=== PATIENT | male | born 1995 | race Hispanic/Latino ===

== ENCOUNTER 2017-04-28 22:33 | Emergency (ER) | payer SELFPAY ==
[2017-04-28 23:44] LABS: Absolute Lymphocytes (CBC) 1.4 K/uL (0.7-4.9); Absolute Monocytes 1.1 K/uL (0.1-1.3); Absolute Neutrophil 11.4 K/uL (1.8-8.0); Basophils % 0.3 % (0-1.3); Eosinophils % 0.8 % (0-4.4); Hematocrit 41.6 % (39.6-49.0); Lymphocytes % 10.2 % (15.3-44.8); MCH 31.4 pg (27.0-35.0); MCV 91.2 fL (80-100); RBC Red Blood Cell Count 4.56 M/uL (4.33-5.43)
[2017-04-29 00:04] LABS: BUN Blood Urea Nitrogen 14 mg/dL (6-20); Bicarbonate 28 mEq/L (21-31); Glomerular Filtration Rate > 90 mL/min (=/>90); Glucose Level 110 mg/dL (65-120); Potassium 3.5 mEq/L (3.6-5.0); Sodium Level 141 mEq/L (135-145)
[2017-04-29 00:41] LABS: Thyroid Stimulating Hormone 0.87 uIU/mL (0.34-5.60)
--- NOTE | 2017-04-29 01:19 | ER ---
Nurse's Notes [facility] Name: Teodoro Monte Age: 22 yrs Sex: Male : 1995 Arrival Date: 04/28/2017 Time: 22:34 Bed 26 Private MD: Diagnosis: Chest pain, unspecified Presentation: 04/28 22:50 Presenting complaint: Patient states: Chest pain that began 30 min ago while patient lp1 was watching TV; States pain to center of chest; noted to be hyperventilating, feeling numbness to arms, shaking, crying; States similar episodes in the past but this was more severe. Transition of care: patient was not received from another setting of care. Onset of symptoms was April 28, 2017 at 22:00. Care prior to arrival: None. 22:50 Method Of Arrival: Wheelchair lp1 22:50 Acuity: JASBIR 3 lp1 Triage Assessment: 22:45 General: Appears distressed, Behavior is anxious, crying. Pain: Complains of pain in lp1 chest Quality of pain is described as sharp, Pain began 30 min ago. Is continuous. Cardiovascular: Patient's skin is warm and dry. Rhythm is sinus tachycardia. Respiratory: Airway is patent Trachea midline Respiratory effort is labored, Respiratory pattern is hyperventilation. Derm: Skin is pink, warm \T\ dry. Historical: - Allergies: 22:52 No Known Allergies; lp1 - Home Meds: 22:52 None [Active]; lp1 - PMHx: 22:52 Heart Murmur; lp1 - PSHx: 22:52 None; lp1 - Immunization history:: Adult Immunizations up to date. - Social history:: Smoking status: Patient uses tobacco products, denies chronic smoking, but will smoke occasionally, Patient uses Marijuana . Screenin:51 Abuse screen: Denies threats or abuse. Denies injuries from another. Nutritional lp1 screening: No deficits noted. Tuberculosis screening: No symptoms or risk factors identified. Fall Risk None identified. Assessment: 22:53 Reassessment: Patient states symptoms have improved. General: Appears comfortable, lp1 Behavior is calm. 23:15 General: Appears in no apparent distress. comfortable, well groomed, well developed, kr2 well nourished, Behavior is cooperative, appropriate for age, anxious. Pain: Complains of pain in chest Pain does not radiate. Pain currently is 8 out of 10 on a pain scale. Quality of pain is described as pressure, sharp, Is continuous. Pain: Pain began 1 hour ago. Alleviated by. Neuro: Cardiovascular: Heart tones S1 S2 Capillary refill < 3 seconds in bilateral fingers Patient's skin is warm and dry. Rhythm is sinus tachycardia. Respiratory: Airway is patent Respiratory effort is even, unlabored, Respiratory pattern is regular, symmetrical, Breath sounds are clear bilaterally. GI: Abdomen is flat, non-distended, Bowel sounds present X 4 quads. : No signs and/or symptoms were reported regarding the genitourinary system. EENT: Nares are clear Oral mucosa is moist. Derm: Skin is intact, is healthy with good turgor, Skin is pink, warm \T\ dry. Musculoskeletal: Circulation, motion, and sensation intact. 04/29 01:00 Reassessment: Patient appears in no apparent distress at this time. Patient and/or kr2 family updated on plan of care and expected duration. Pain level reassessed. Patient is alert, oriented x 3, equal unlabored respirations, skin warm/dry/pink. Patient denies pain at this time. Vital Signs: 04/28 22:49 BP 168 / 76; Pulse 118; Resp 14; Temp 98.8(O); Pulse Ox 96% on R/A; Weight 77.11 kg; lp1 Height 5 ft. 9 in. (175.26 cm); Pain 8/10; 23:38 BP 121 / 64; Pulse 89; Resp 18; Pulse Ox 97% on R/A; kr2 04/29 01:00 BP 108 / 63; Pulse 69; Resp 17; Pulse Ox 96% on R/A; kr2 04/28 22:49 Body Mass Index 25.10 (77.11 kg, 175.26 cm) lp1 ED Course: 04/28 22:34 Patient arrived in ED. do 22:48 Nghia Sommers MD is Attending Physician. gs 22:49 Arm band placed on left wrist. lp1 22:51 Triage completed. lp1 22:51 Patient has correct armband on for positive identification. Placed in gown. Bed in low lp1 position. Call light in reach. monitor and storage bin tender on. Pulse ox on. NIBP on. 22:51 EKG done, by ED staff, reviewed by Nghia Sommers MD. Patient maintains SpO2 saturation lp1 greater than 95% on room air. 23:15 Inserted saline lock: 22 gauge in right forearm, using aseptic technique. Blood kr2 collected. 23:25 Karlie Lino, RN is Primary Nurse. kr2 23:38 X-ray completed. Portable x-ray completed in exam room. Patient tolerated procedure kw well. 03 01:19 No provider procedures requiring assistance completed. IV discontinued, intact, kr2 bleeding controlled, No redness/swelling at site. Pressure dressing applied. Administered Medications: No medications were administered Outcome: 01:18 Discharge ordered by . gs 01:23 Discharged to home ambulatory, with family. kr2 01:23 Condition: good 01:23 Discharge instructions given to patient, family, Instructed on discharge instructions, follow up and referral plans. medication usage, Demonstrated understanding of instructions, follow-up care, medications, Prescriptions given X 1. 01:23 Patient left the ED. kr2 Signatures: Carole Arias Laura, RN RN lp1 Pricilla Almonte Gregory, MD MD Karlie Lino, RN RN kr2 Corrections: (The following items were deleted from the chart) 04/28 22:52 22:50 Presenting complaint: Patient states: Chest pain that began 30 min ago while lp1 patient was watching TV; States pain to center of chest; noted to be hyperventilating, feeling numbness to arms, shaking, crying lp1 22:54 22:45 Pain: Complains of pain in chest lp1 lp1
--- NOTE | 2017-04-29 01:19 | EDPHYS ---
Physician Documentation [facility] Name: Teodoro Monte Age: 22 yrs Sex: Male : 1995 Arrival Date: 04/28/2017 Time: 22:34 Bed 26 Private MD: ED Physician Nghia Sommers HPI: 04/29 01:09 This 22 yrs old Male presents to ER via Wheelchair with complaints of Chest gs Pain. 01:09 The patient or guardian reports chest pain that is located primarily in the anterior gs chest wall. The pain does not radiate. Associated signs and symptoms: Pertinent negatives: diaphoresis, shortness of breath, vomiting. The chest pain is described as dull. Duration: The patient or guardian reports multiple episodes, that wax and wane, with no pattern. Modifying factors: The symptoms are alleviated by nothing. the symptoms are aggravated by nothing. Severity of pain: At its worst the pain was moderate in the emergency department the pain is unchanged. The patient has experienced similar episodes in the past, several times. Historical: - Allergies: 04/28 22:52 No Known Allergies; lp1 - Home Meds: 22:52 None [Active]; lp1 - PMHx: 22:52 Heart Murmur; lp1 - PSHx: 22:52 None; lp1 - Immunization history:: Adult Immunizations up to date. - Social history:: Smoking status: Patient uses tobacco products, denies chronic smoking, but will smoke occasionally, Patient uses Marijuana . ROS: 04/29 01:09 All other systems are negative. gs Exam: 01:09 Head/Face: Normocephalic, atraumatic. Eyes: Pupils equal round and reactive to light, gs extra-ocular motions intact. Lids and lashes normal. Conjunctiva and sclera are non-icteric and not injected. Cornea within normal limits. Periorbital areas with no swelling, redness, or edema. ENT: Nares patent. No nasal discharge, no septal abnormalities noted. Tympanic membranes are normal and external auditory canals are clear. Oropharynx with no redness, swelling, or masses, exudates, or evidence of obstruction, uvula midline. Mucous membranes moist. Neck: Trachea midline, no thyromegaly or masses palpated, and no cervical lymphadenopathy. Supple, full range of motion without nuchal rigidity, or vertebral point tenderness. No Meningismus. Chest/axilla: Normal chest wall appearance and motion. Nontender with no deformity. No lesions are appreciated. Respiratory: Lungs have equal breath sounds bilaterally, clear to auscultation and percussion. No rales, rhonchi or wheezes noted. No increased work of breathing, no retractions or nasal flaring. Abdomen/GI: Soft, non-tender, with normal bowel sounds. No distension or tympany. No guarding or rebound. No evidence of tenderness throughout. Back: No spinal tenderness. No costovertebral tenderness. Full range of motion. Skin: Warm, dry with normal turgor. Normal color with no rashes, no lesions, and no evidence of cellulitis. MS/ Extremity: Pulses equal, no cyanosis. Neurovascular intact. Full, normal range of motion. Neuro: Awake and alert, GCS 15, oriented to person, place, time, and situation. Cranial nerves II-XII grossly intact. Motor strength 5/5 in all extremities. Sensory grossly intact. Cerebellar exam normal. Normal gait. 01:09 Constitutional: The patient appears alert, awake. 01:09 Cardiovascular: Rate: tachycardic, Rhythm: regular, Pulses: no pulse deficits are appreciated, Heart sounds: normal. 01:09 ECG was reviewed by the Attending Physician. Vital Signs: 04/28 22:49 BP 168 / 76; Pulse 118; Resp 14; Temp 98.8(O); Pulse Ox 96% on R/A; Weight 77.11 kg; lp1 Height 5 ft. 9 in. (175.26 cm); Pain 8/10; 23:38 BP 121 / 64; Pulse 89; Resp 18; Pulse Ox 97% on R/A; kr2 04/29 01:00 BP 108 / 63; Pulse 69; Resp 17; Pulse Ox 96% on R/A; kr2 04/28 22:49 Body Mass Index 25.10 (77.11 kg, 175.26 cm) lp1 MDM: 04/28 23:20 Patient medically screened. 04/29 01:09 Differential diagnosis: chest wall pain, pneumonia, pneumothorax. Data reviewed: vital gs signs, nurses notes. Response to treatment: the patient's symptoms have markedly improved after treatment, the patient's symptoms have resolved after treatment, the patient is not tachycardic. 04/28 23:21 Order name: Basic Metabolic Panel 04/28 23:21 Order name: CBC with Diff 04/28 23:21 Order name: Troponin (emerg Dept Use Only) 04/28 23:21 Order name: TSH 04/28 23:49 Order name: CBC with Automated Diff; Complete Time: 01:08 EDMS 04/29 00:04 Order name: Basic Metabolic Panel; Complete Time: 01:08 EDMS 04/28 23:21 Order name: XRAY Chest (1 view) 04/28 23:21 Order name: EKG; Complete Time: 23:21 04/28 23:21 Order name: Cardiac monitoring; Complete Time: 23:37 04/28 23:21 Order name: EKG - Nurse/Tech; Complete Time: 23:37 04/28 23:21 Order name: IV Saline Lock; Complete Time: 23:37 04/29 00:04 Order name: Troponin (Emerg Dept Use Only); Complete Time: 01:08 EDMS 04/29 00:22 Order name: Urine Dipstick--Ancillary (enter results) ia 04/29 00:41 Order name: Thyroid Stimulating Hormone; Complete Time: 01:08 EDMS 04/28 23:21 Order name: Labs collected and sent; Complete Time: 23:37 04/28 23:21 Order name: O2 Per Protocol; Complete Time: 23:37 04/28 23:21 Order name: O2 Sat Monitoring; Complete Time: 23:37 04/28 23:21 Order name: Urine Dipstick-Ancillary (obtain specimen); Complete Time: 00:20 gs EC:09 Rate is 116 beats/min. Rhythm is regular. MT interval is normal. QRS interval is gs prolonged. T waves are Normal. No ST changes noted. Clinical impression: Normal ECG. Interpreted by me. Administered Medications: No medications were administered Disposition: 04/29/17 01:18 Discharged to Home. Impression: Chest pain, unspecified. - Condition is Stable. - Discharge Instructions: Nonspecific Chest Pain. - Prescriptions for Naprosyn 500 mg Oral Tablet - take 1 tablet by ORAL route 2 times per day As needed take with food; 30 tablet. - Medication Reconciliation Form, Thank You Letter, Antibiotic Education, Prescription Opioid Use form. - Follow up: Private Physician; When: 2 - 3 days; Reason: Re-evaluation by your physician. Signatures: Dispatcher [employer] Sheila Arreaga RN RN lp1 Nghia Sommers MD MD gs Karlie Lino RN RN kr2
[2017-04-29 01:30] VITALS: TEMP 98.8
[2017-04-29 01:33] VITALS: BP 108/63; O2SAT 96
[2017-04-29 03:07] LABS: Urine Blood NEGATIVE (NEG); Urine Glucose NEGATIVE (NEG); Urine Protein NEGATIVE (NEG)
--- NOTE | 2017-04-29 06:48 | RAD REPORT ---
EXAM DESCRIPTION: RAD - Chest Single View - 04/28/2017 11:41 pm CLINICAL HISTORY: Chest pain COMPARISON: None. TECHNIQUE: AP portable chest image was obtained 2331 hours . FINDINGS: Lungs are clear. Heart and vasculature are normal. No measurable pleural effusion and no p neumothorax. No gross bony abnormality seen. No acute aortic findings suspected. IMPRESSION: No acute cardiopulmonary process.
--- NOTE | 2017-04-29 07:34 | EKG ---
Test Date: 2017-04-28 Test Time: 22:42:01 Manager Simulation: MADHAVI MEASUREMENT RESULTS: Intervals: Rate: 116 NE: 160 QRSD: 102 QT: 326 QTc: 453 [place]: P: 71 NE: 160 QRS: 18 T: 37 INTERPRETIVE STATEMENTS: Sinus tachycardia Otherwise normal ECG Compared to ECG 11/22/2015 11:42:39 Sinus rhythm no longer present Electronically Signed On 04-29-17 07:33:31 CDT by Ernesto Lemus
== END 2017-04-29 01:23 | disposition home or self-care (01) ==
LOC: ER 22:33
DX: R07.9 Chest pain, unspecified (principal); R01.1 Cardiac murmur, unspecified; Z72.0 Tobacco use
CPT/HCPCS: 36415; 71045; 80048; 81003; 84443; 84484; 85025; 93005; 99285

== ENCOUNTER 2017-07-03 10:20 | Emergency (ER) | payer SELFPAY ==
[2017-07-03] MEDS ORDERED: ASPIRIN 81 MG CHEWABLE TABLET ONE (13:21)
[2017-07-03 14:09] LABS: Absolute Lymphocytes (CBC) 2.4 K/uL (0.7-4.9); Absolute Monocytes 0.8 K/uL (0.1-1.3); Absolute Neutrophil 6.6 K/uL (1.8-8.0); Basophils % 0.3 % (0-1.3); Eosinophils % 0.7 % (0-4.4); Lymphocytes % 24.2 % (15.3-44.8); MCV 91.9 fL (80-100); MPV 8.3 fL (7.6-11.3); Monocytes % 8.1 % (3.3-12.3)
[2017-07-03 14:12] LABS: Bicarbonate 25 mEq/L (21-31); Glucose Level 97 mg/dL (65-120); Potassium 3.7 mEq/L (3.6-5.0); Sodium Level 139 mEq/L (135-145)
[2017-07-03 14:18] LABS: ALT/SGPT 18 IU/L (10-60); AST/SGOT 20 IU/L (10-42); Albumin 4.9 g/dL (3.2-5.5); Alkaline Phosphatase 81 IU/L (42-121); BUN Blood Urea Nitrogen 14 mg/dL (6-20); Bilirubin Direct 0.1 mg/dL (0-0.2); Bilirubin Total 0.7 mg/dL (0.3-1.2); Creatine Phosphokinase 82 IU/L (22-269); Magnesium 2.3 mg/dL (1.8-2.5); Protein, Total 7.8 g/dL (6.0-8.3)
--- NOTE | 2017-07-03 14:25 | RAD REPORT ---
EXAM DESCRIPTION: RAD - Chest Single View - 07/03/2017 1:26 pm CLINICAL HISTORY: Intermittent chest pain COMPARISON: April 28 TECHNIQUE: AP portable chest image was obtained 1323 hours . FINDINGS: Lungs are clear. Heart and vasculature are normal. No measurable pleural effusion and no p neumothorax. No gross bony abnormality seen. No acute aortic findings suspected. IMPRESSION: No acute cardiopulmonary process. No significant interval change.
[2017-07-03 14:31] LABS: Urine Blood TRACE (NEG); Urine Glucose NEGATIVE (NEG); Urine Protein NEGATIVE (NEG); Urine Specific Gravity 1.025 (1.005-1.030); Urine pH 6.5 (5.0-7.0)
[2017-07-03 17:51] LABS: CKMB Creatine Kinase MB 0.8 ng/ml (0.3-4.0)
--- NOTE | 2017-07-03 17:58 | ER ---
Nurse's Notes [facility] Name: Teodoro Monte Age: 22 yrs Sex: Male : 1995 Arrival Date: 07/03/2017 Time: 10: Bed 27 Private MD: None, None Diagnosis: Other chest pain Presentation: 07/03 10:32 Presenting complaint: Patient states: "I get these episodes of chest pain a few times a aj month, I have been told they are anxiety attacks but a monitor car operator that came to my house a week ago told me I have an irregular heart beat and a murmur.". Transition of care: patient was not received from another setting of care. Onset of symptoms was July 03, 2017. Care prior to arrival: None. 10:32 Method Of Arrival: Ambulatory aj 10:32 Acuity: JASBIR 3 aj 12:30 Risk Assessment: Do you want to hurt yourself or someone else? Patient reports no aa5 desire to harm self or others. Initial Sepsis Screen: Does the patient meet any 2 criteria? No. Patient's initial sepsis screen is negative. Does the patient have a suspected source of infection? No. Patient's initial sepsis screen is negative. Triage Assessment: 10:34 General: Appears in no apparent distress. uncomfortable, Behavior is calm, cooperative, aj appropriate for age. Pain: Complains of pain in chest. Neuro: Level of Consciousness is awake, alert, obeys commands, Oriented to person, place, time, situation, Appropriate for age. Cardiovascular: Reports chest pain. Respiratory: Airway is patent Respiratory effort is even, unlabored, Respiratory pattern is regular, symmetrical. GI: Reports nausea, vomiting. Derm: Skin is intact, is healthy with good turgor, Skin is pink, warm \\T\\ dry. normal. Historical: - Allergies: 10:34 No Known Allergies; aj - Home Meds: 10:34 None [Active]; aj - PMHx: 10:34 Heart Murmur; aj - PSHx: 10:34 None; aj - Immunization history:: Adult Immunizations up to date. - Social history:: Smoking status: Patient uses tobacco products, denies chronic smoking, but will smoke occasionally. - Ebola Screening: : No symptoms or risks identified at this time. Screenin:30 Abuse screen: Denies threats or abuse. Nutritional screening: No deficits noted. aa5 Tuberculosis screening: No symptoms or risk factors identified. Fall Risk None identified. Assessment: 12:30 General: Appears comfortable, Behavior is calm, cooperative. Pain: Complains of pain in aa5 mid-sternal area Pain radiates to anterior aspect of left upper chest and left jaw Pain currently is 0 out of 10 on a pain scale. Quality of pain is described as pressure, shooting, squeezing, Pain began Pt states "months ago" Is episodic. Neuro: Level of Consciousness is awake, alert, obeys commands, Oriented to person, place, time, situation. Cardiovascular: Heart tones S1 S2 present Rhythm is regular. Respiratory: Reports shortness of breath at rest since this morning Airway is patent Respiratory effort is even, unlabored, Respiratory pattern is regular, symmetrical, Breath sounds are clear bilaterally. GI: No signs and/or symptoms were reported involving the gastrointestinal system. : No signs and/or symptoms were reported regarding the genitourinary system. EENT: No signs and/or symptoms were reported regarding the EENT system. Derm: Skin is pink, warm \\T\\ dry. Musculoskeletal: Range of motion: intact in all extremities. 13:40 Reassessment: Report given to RIA Ziegler. aa5 13:49 Reassessment: Patient appears in no apparent distress at this time. Patient and/or kr2 family updated on plan of care and expected duration. Pain level reassessed. Patient is alert, oriented x 3, equal unlabored respirations, skin warm/dry/pink. Patient up to restroom at this time. 15:00 Reassessment: No changes from previously documented assessment. kr2 16:21 Reassessment: Patient appears in no apparent distress at this time. Patient and/or kr2 family updated on plan of care and expected duration. Pain level reassessed. Patient is alert, oriented x 3, equal unlabored respirations, skin warm/dry/pink. Patient denies pain at this time. Vital Signs: 10:34 BP 138 / 84; Pulse 87; Resp 16; Temp 98.7; Pulse Ox 99% on R/A; Weight 79.38 kg; Height aj 5 ft. 9 in. (175.26 cm); 13:20 BP 137 / 76; Pulse 60; Resp 16 S; Pulse Ox 100% on R/A; aa5 13:54 BP 130 / 91; Pulse 68; Resp 19; Pulse Ox 98% on R/A; kr2 15:00 BP 128 / 100; Pulse 73; Resp 17; Pulse Ox 99% on R/A; kr2 16:22 BP 129 / 75; Pulse 60; Resp 16; Pulse Ox 100% on R/A; kr2 17:41 BP 125 / 79; Pulse 54; Resp 13; Pulse Ox 99% on R/A; mh5 10:34 Body Mass Index 25.84 (79.38 kg, 175.26 cm) aj ED Course: 10:22 Patient arrived in ED. mr 10:22 None, None is Private Physician. mr 10:34 Triage completed. aj 10:34 Arm band placed on left wrist. Patient placed in waiting room, Patient notified of wait aj time. 10:35 EKG completed in triage. Results shown to MD. aj 10:53 EKG done, by home service technician. reviewed by Russ Talbert MD. 3 11:58 Donna Gomez, RIA is Primary Nurse. aa5 12:24 Raul Wilcox PA is PHCP. cp 12:24 Russ Talbert MD is Attending Physician. cp 12:30 Patient placed in an exam room, on a stretcher. aa5 12:30 Patient has correct armband on for positive identification. Bed in low position. Call aa5 light in reach. Side rails up X2. 12:30 specialties operator on. Pulse ox on. NIBP on. aa5 12:30 Patient maintains SpO2 saturation greater than 95% on room air. aa5 13:26 XRAY Chest (1 view) In Process Unspecified. EDMS 13:30 Inserted saline lock: 20 gauge in right forearm, using aseptic technique. aa5 13:47 No provider procedures requiring assistance completed. aa5 17:57 John Gasca MD is Referral Physician. cp 18:13 IV discontinued, intact, bleeding controlled, No redness/swelling at site. Pressure mb3 dressing applied. Administered Medications: 13:20 Drug: Aspirin Chewable Tablet 324 mg Route: PO; aa5 18:11 Follow up: Response: No adverse reaction mb3 Outcome: 17:57 Discharge ordered by MD. cp 18:13 Discharged to home ambulatory. mb3 18:13 Condition: stable 18:13 Discharge instructions given to patient, Instructed on discharge instructions, follow up and referral plans. medication usage, Demonstrated understanding of instructions, follow-up care, medications, Prescriptions given X 1. 18:14 Patient left the ED. mb3 Signatures: Dispatcher [employer] EDМария Navarrete, RN Tara Keane mr Jason, Donna, RN RN chan5 Raul Wilcox PA PA cp Martinez, Maria Karlie Hernandes RN RN kr2 Fab Cosme RN RN mb3 Larisa Cash 3
--- NOTE | 2017-07-03 17:58 | EDPHYS ---
Physician Documentation [facility] Name: Teodoro Monte Age: 22 yrs Sex: Male : 1995 Arrival Date: 07/03/2017 Time: 10:22 Bed 27 Private MD: None, None ED Physician Russ Talbert HPI: 07/03 12:45 This 22 yrs old Male presents to ER via Ambulatory with complaints of Chest cp Pain. 12:45 The patient or guardian reports chest pain that is located primarily in the anterior cp chest wall. 12:45 The pain radiates to intermittent to neck. Associated signs and symptoms: Pertinent cp negatives: abdominal pain, diaphoresis, headache, lower extremity pain, lower extremity swelling, recent travel, shortness of breath, syncope. The chest pain is described as a pressure, intermittent. Duration: The patient or guardian reports multiple episodes, that are intermittent, with no pattern. 12:45 Patient seen 2 months ago for similar symptoms and referred to cardiology for f/u. cp Patient reports he has not scheduled appt yet. Historical: - Allergies: 10:34 No Known Allergies; aj - Home Meds: 10:34 None [Active]; aj - PMHx: 10:34 Heart Murmur; aj - PSHx: 10:34 None; aj - Immunization history:: Adult Immunizations up to date. - Social history:: Smoking status: Patient uses tobacco products, denies chronic smoking, but will smoke occasionally. - Ebola Screening: : No symptoms or risks identified at this time. ROS: 12:46 Eyes: Negative for injury, pain, redness, and discharge. cp 12:46 Constitutional: Negative for body aches, chills, fever, poor PO intake. Exam: 12:46 ECG was reviewed by the Attending Physician. cp 12:50 Constitutional: The patient appears in no acute distress, alert, awake, cp non-diaphoretic, non-toxic, well developed, well nourished. 12:50 Head/Face: Normocephalic, atraumatic. Eyes: Pupils equal round and reactive to light, cp extra-ocular motions intact. Lids and lashes normal. Conjunctiva and sclera are non-icteric and not injected. Cornea within normal limits. Periorbital areas with no swelling, redness, or edema. ENT: Nares patent. No nasal discharge, no septal abnormalities noted. Tympanic membranes are normal and external auditory canals are clear. Oropharynx with no redness, swelling, or masses, exudates, or evidence of obstruction, uvula midline. Mucous membranes moist. Neck: Trachea midline, no thyromegaly or masses palpated, and no cervical lymphadenopathy. Supple, full range of motion without nuchal rigidity, or vertebral point tenderness. No Meningismus. Chest/axilla: Normal chest wall appearance and motion. Nontender with no deformity. No lesions are appreciated. 12:50 Cardiovascular: Rate: normal, Rhythm: regular, Pulses: Pulses are 2+ in right radial artery and left radial artery. Heart sounds: murmur, not appreciated, rub, not appreciated, gallop, not appreciated, Edema: is not appreciated, JVD: is not appreciated. 12:50 Respiratory: the patient does not display signs of respiratory distress, Respirations: normal, no use of accessory muscles, no retractions, no splinting, no tachypnea, labored breathing, is not present, Breath sounds: are clear throughout, no decreased breath sounds, no stridor, no wheezing. 12:50 Abdomen/GI: Inspection: abdomen appears normal, Bowel sounds: active, all quadrants, Palpation: abdomen is soft and non-tender, in all quadrants. 12:50 Back: pain, is absent, ROM is normal. 12:50 Skin: cellulitis, is not appreciated, no rash present. 12:50 Neuro: Orientation: to person, place \T\ time. Mentation: is normal, Cerebellar function: is grossly normal, Motor: moves all fours, strength is normal, Sensation: no obvious gross deficits. Vital Signs: 10:34 BP 138 / 84; Pulse 87; Resp 16; Temp 98.7; Pulse Ox 99% on R/A; Weight 79.38 kg; Height aj 5 ft. 9 in. (175.26 cm); 13:20 BP 137 / 76; Pulse 60; Resp 16 S; Pulse Ox 100% on R/A; aa5 13:54 BP 130 / 91; Pulse 68; Resp 19; Pulse Ox 98% on R/A; kr2 15:00 BP 128 / 100; Pulse 73; Resp 17; Pulse Ox 99% on R/A; kr2 16:22 BP 129 / 75; Pulse 60; Resp 16; Pulse Ox 100% on R/A; kr2 17:41 BP 125 / 79; Pulse 54; Resp 13; Pulse Ox 99% on R/A; mh5 10:34 Body Mass Index 25.84 (79.38 kg, 175.26 cm) aj MDM: 12:24 Patient medically screened. 17:56 Data reviewed: vital signs, nurses notes, lab test result(s), EKG, radiologic studies, cp plain films. 17:56 Test interpretation: by ED physician or midlevel provider: ECG, plain radiologic cp studies. Counseling: I had a detailed discussion with the patient and/or guardian regarding: the historical points, exam findings, and any diagnostic results supporting the discharge/admit diagnosis, lab results, radiology results, the need for outpatient follow up, a dampproofer, to return to the emergency department if symptoms worsen or persist or if there are any questions or concerns that arise at home. 07/03 13:01 Order name: Basic Metabolic Panel; Complete Time: 17:56 07/03 14:52 Interpretation: Reviewed. 07/03 13:01 Order name: CBC with Diff; Complete Time: 14:52 07/03 14:53 Interpretation: Reviewed. 07/03 13:01 Order name: Ckmb; Complete Time: 17:56 07/03 13:01 Order name: CPK; Complete Time: 17:56 07/03 17:07 Interpretation: CPK 82; Reviewed. 07/03 13:01 Order name: LFT's; Complete Time: 17:56 07/03 13:01 Order name: Magnesium; Complete Time: 17:56 07/03 16:03 Interpretation: MG 2.3; Reviewed. 07/03 13:01 Order name: Troponin (emerg Dept Use Only); Complete Time: 17:49 07/03 17:49 Interpretation: Reviewed. 07/03 13:01 Order name: XRAY Chest (1 view); Complete Time: 14:52 07/03 14:52 Interpretation: Report review. 07/03 13:01 Order name: Cardiac monitoring; Complete Time: 13:35 07/03 13:01 Order name: IV Saline Lock; Complete Time: 13:35 07/03 13:01 Order name: Labs collected and sent; Complete Time: 13:35 07/03 13:06 Order name: EKG Electrocardiogram; Complete Time: 13:19 EDMS 07/03 14:25 Order name: Urine Dipstick--Ancillary (enter results); Complete Time: 14:52 bd 07/03 14:52 Interpretation: Normal except: UBLD TRACE. cp 07/03 13:01 Order name: O2 Per Protocol; Complete Time: 13:35 cp 07/03 13:01 Order name: O2 Sat Monitoring; Complete Time: 13:35 cp EC:46 Rate is 82 beats/min. Rhythm is regular. FL interval is normal. QRS interval is normal. cp QT interval is normal. No ST changes noted. Interpreted by me. Reviewed by me. Administered Medications: 13:20 Drug: Aspirin Chewable Tablet 324 mg Route: PO; aa5 18:11 Follow up: Response: No adverse reaction mb3 Disposition: 19:20 Co-signature as Attending Physician, Russ Talbert MD I agree with the assessment and kdr plan of care. Disposition: 07/03/17 17:57 Discharged to Home. Impression: Other chest pain. - Condition is Stable. - Discharge Instructions: Nonspecific Chest Pain. - Prescriptions for Naprosyn 500 mg Oral Tablet - take 1 tablet by ORAL route 2 times per day take with food; 20 tablet. - Medication Reconciliation Form, Thank You Letter, Antibiotic Education, Prescription Opioid Use form. - Follow up: John Gasca MD; When: 2 - 3 days; Reason: Recheck today's complaints. Signatures: Dispatcher [employer] Мария Allen RN RN aj Rittger, Kevin, MD MD [facility] Donna Gomez RN RN aa5 Raul Wilcox PA PA cp Barnett, Mark, RN RN mb3 Corrections: (The following items were deleted from the chart) 12:47 10:35 Rate is 82 beats/min. Rhythm is regular. FL interval is normal. QRS interval is cp normal. QT interval is normal. No ST changes noted. Interpreted by me. Reviewed by me. cp 18:14 17:57 07/03/2017 17:57 Discharged to Home. Impression: Other chest pain. Condition is mb3 Stable. Forms are Medication Reconciliation Form, Thank You Letter, Antibiotic Education, Prescription Opioid Use. Follow up: John Gasca; When: 2 - 3 days; Reason: Recheck today's complaints. cp
[2017-07-03 18:25] VITALS: TEMP 98.7
[2017-07-03 18:31] VITALS: BP 125/79; O2SAT 99
--- NOTE | 2017-07-04 06:58 | EKG ---
Test Date: 2017-07-03 Test Time: 10:33:59 Stoker Erector: DASH MEASUREMENT RESULTS: Intervals: Rate: 82 TN: 158 QRSD: 100 QT: 356 QTc: 415 [place]: P: 70 TN: 158 QRS: 34 T: 37 INTERPRETIVE STATEMENTS: Normal sinus rhythm Normal ECG Compared to ECG 04/28/2017 22:42:01 Sinus tachycardia no longer present Electronically Signed On 07-04-17 06:55:42 CDT by John Gasca
== END 2017-07-03 18:14 | disposition home or self-care (01) ==
LOC: ER 10:20
DX: R07.9 Chest pain, unspecified (principal)
CPT/HCPCS: 36415; 71045; 80048; 80076; 81003; 82550; 82553; 83735; 84484; 85025; 93005; 99285

== ENCOUNTER 2017-08-19 15:10 | Emergency (ER) | payer SELFPAY ==
[2017-08-19 16:25] LABS: MCH 31.5 pg (27.0-35.0); MCV 92.9 fL (80-100); MPV 8.2 fL (7.6-11.3); RBC Red Blood Cell Count 4.74 M/uL (4.33-5.43)
[2017-08-19 16:26] LABS: Absolute Lymphocytes (CBC) 1.3 K/uL (0.7-4.9); Absolute Monocytes 0.6 K/uL (0.1-1.3); Absolute Neutrophil 6.9 K/uL (1.8-8.0); Basophils % 0.6 % (0-1.3); Lymphocytes % 14.7 % (15.3-44.8); Monocytes % 6.8 % (3.3-12.3)
--- NOTE | 2017-08-19 16:33 | RAD REPORT ---
EXAM DESCRIPTION: RAD - Chest Single View - 08/19/2017 4:27 pm CLINICAL HISTORY: CHEST PAIN Chest pain. COMPARISON: Chest Single View dated 07/03/2017; Chest Single View dated 04/28/2017 FINDINGS: Portable technique limits examination quality. The lungs are grossly clear. The heart is normal in size. No displaced fractures. IMPRESSION: No acute intrathoracic process suspected.
[2017-08-19 16:47] LABS: BUN Blood Urea Nitrogen 13 mg/dL (7-18); Bicarbonate 26 mmol/L (21-32); Glucose Level 96 mg/dL (74-106); Magnesium 2.2 mg/dL (1.8-2.4); Potassium 3.8 mmol/L (3.5-5.1); Sodium Level 142 mmol/L (136-145)
[2017-08-19] MEDS ORDERED: ASPIRIN 81 MG CHEWABLE TABLET ONE (17:12)
--- NOTE | 2017-08-19 19:15 | EDPHYS ---
Physician Documentation [facility] Name: Teodoro Monte Age: 22 yrs Sex: Male : 1995 Arrival Date: 08/19/2017 Time: 15:13 Bed 28 Private MD: ED Physician Earnest Flores HPI: 08/19 17:14 This 22 yrs old Male presents to ER via Ambulatory with complaints of Chest jr8 Pain/Dizziness. 17:14 The patient or guardian reports chest pain that is located primarily in the substernal jr8 area. The pain radiates to the left arm. Associated signs and symptoms: Pertinent positives: dizziness, shortness of breath. The chest pain is described as a pressure. Duration: The patient or guardian reports a single episode. Modifying factors: The symptoms are alleviated by nothing. the symptoms are aggravated by nothing. Severity of pain: At its worst the pain was mild in the emergency department the pain has resolved. The patient has experienced similar episodes in the past, a few times. The patient has not recently seen a physician. Patient stated that he has been seen about 4 times in the past year for this. Wants to make sure everything is ok. Has yet to f/u with hospitalist medical director but does have appointment now . Historical: - Allergies: 15:49 No Known Allergies; aj - Home Meds: 15:49 Naproxen Oral [Active]; aj - PMHx: 15:49 Heart Murmur; Anxiety; aj - PSHx: 15:49 None; aj - Immunization history:: Adult Immunizations up to date. - Social history:: Smoking status: Patient/guardian denies using tobacco. - Ebola Screening: : Patient negative for fever greater than or equal to 101.5 degrees Fahrenheit, and additional compatible Ebola Virus Disease symptoms Patient denies exposure to infectious person Patient denies travel to an Ebola-affected area in the 21 days before illness onset No symptoms or risks identified at this time. ROS: 17:14 Eyes: Negative for injury, pain, redness, and discharge, ENT: Negative for injury, jr8 pain, and discharge, Neck: Negative for injury, pain, and swelling, Respiratory: Negative for shortness of breath, cough, wheezing, and pleuritic chest pain, Abdomen/GI: Negative for abdominal pain, nausea, vomiting, diarrhea, and constipation, Back: Negative for injury and pain, MS/Extremity: Negative for injury and deformity, Skin: Negative for injury, rash, and discoloration, Neuro: Negative for headache, weakness, numbness, tingling, and seizure. 17:14 Cardiovascular: Positive for chest pain, Negative for edema, orthopnea, palpitations, paroxysmal nocturnal dyspnea. Exam: 17:14 Eyes: Pupils equal round and reactive to light, extra-ocular motions intact. Lids and jr8 lashes normal. Conjunctiva and sclera are non-icteric and not injected. Cornea within normal limits. Periorbital areas with no swelling, redness, or edema. ENT: Nares patent. No nasal discharge, no septal abnormalities noted. Tympanic membranes are normal and external auditory canals are clear. Oropharynx with no redness, swelling, or masses, exudates, or evidence of obstruction, uvula midline. Mucous membranes moist. Neck: Trachea midline, no thyromegaly or masses palpated, and no cervical lymphadenopathy. Supple, full range of motion without nuchal rigidity, or vertebral point tenderness. No Meningismus. Chest/axilla: Normal chest wall appearance and motion. Nontender with no deformity. No lesions are appreciated. Cardiovascular: Regular rate and rhythm with a normal S1 and S2. No gallops, murmurs, or rubs. Normal PMI, no JVD. No pulse deficits. Respiratory: Lungs have equal breath sounds bilaterally, clear to auscultation and percussion. No rales, rhonchi or wheezes noted. No increased work of breathing, no retractions or nasal flaring. Abdomen/GI: Soft, non-tender, with normal bowel sounds. No distension or tympany. No guarding or rebound. No evidence of tenderness throughout. Back: No spinal tenderness. No costovertebral tenderness. Full range of motion. Skin: Warm, dry with normal turgor. Normal color with no rashes, no lesions, and no evidence of cellulitis. MS/ Extremity: Pulses equal, no cyanosis. Neurovascular intact. Full, normal range of motion. Neuro: Awake and alert, GCS 15, oriented to person, place, time, and situation. Cranial nerves II-XII grossly intact. Motor strength 5/5 in all extremities. Sensory grossly intact. Cerebellar exam normal. Normal gait. Vital Signs: 15:49 BP 133 / 71; Pulse 78; Resp 19; Temp 98.1; Pulse Ox 98% on R/A; Weight 81.65 kg; Height aj 5 ft. 9 in. (175.26 cm); 16:44 BP 116 / 57; Pulse 58; Resp 18; Pulse Ox 98% on R/A; Pain 3/10; mg2 17:48 BP 135 / 69; Pulse 59; Resp 18; Pulse Ox 100% on R/A; Pain 0/10; mg2 19:01 BP 116 / 60; Pulse 55; Resp 18; Pulse Ox 100% ; Pain 0/10; mg2 15:49 Body Mass Index 26.58 (81.65 kg, 175.26 cm) aj MDM: 15:51 Patient medically screened. jr8 19:13 Data reviewed: vital signs, nurses notes, lab test result(s), EKG, radiologic studies, jr8 and as a result, I will discharge patient. Data interpreted: Pulse oximetry: on room air is 100 %. Interpretation: normal. Counseling: I had a detailed discussion with the patient and/or guardian regarding: the historical points, exam findings, and any diagnostic results supporting the discharge/admit diagnosis, lab results, radiology results, the need for outpatient follow up, a hospitalist medical director, to return to the emergency department if symptoms worsen or persist or if there are any questions or concerns that arise at home. ED course: Patient feeling better. No ecg or troponin change. Will send home to f/u with cardiology . 08/19 16:02 Order name: CBC with Diff; Complete Time: 16:54 08/19 16:02 Order name: Basic Metabolic Panel; Complete Time: 16:54 08/19 16:02 Order name: Magnesium; Complete Time: 16:54 08/19 16:02 Order name: Troponin (emerg Dept Use Only); Complete Time: 16:54 08/19 16:02 Order name: XRAY Chest (1 view); Complete Time: 16:54 08/19 18:12 Order name: Troponin (emerg Dept Use Only); Complete Time: 19:13 08/19 16:02 Order name: EKG; Complete Time: 16:03 08/19 16:02 Order name: EKG - Nurse/Tech; Complete Time: 16:09 08/19 16:02 Order name: IV; Complete Time: 16:09 8 08/19 18:12 Order name: EKG - Nurse/Tech; Complete Time: 18:52 jr8 Administered Medications: 17:11 Drug: Aspirin Chewable Tablet 324 mg Route: PO; mg2 19:19 Follow up: Response: No adverse reaction mg2 Disposition: 08/20 06:58 Co-signature as Attending Physician, Earnest Flores MD. rn Disposition: 08/19/17 19:14 Discharged to Home. Impression: Chest pain, unspecified. - Condition is Stable. - Discharge Instructions: Nonspecific Chest Pain. - Medication Reconciliation Form, Thank You Letter, Antibiotic Education, Prescription Opioid Use form. - Follow up: Private Physician; When: 2 - 3 days; Reason: Recheck today's complaints, Continuance of care, Re-evaluation by your physician. - Problem is new. - Symptoms have improved. Signatures: Dispatcher [employer] EDMS Мария Rhodes RN RN aj Nieto, Roman, MD MD rn Roszak, Josh, PA PA jr8 Moncho Ham RN RN mg2 Corrections: (The following items were deleted from the chart) 08/19 17:16 17:14 This 22 yrs old Male presents to ER via Ambulatory with complaints of jr8 Shortness Of Breath, Dizziness. jr8 19:53 19:14 08/19/2017 19:14 Discharged to Home. Impression: Chest pain, unspecified. mg2 Condition is Stable. Forms are Medication Reconciliation Form, Thank You Letter, Antibiotic Education, Prescription Opioid Use. Follow up: Private Physician; When: 2 - 3 days; Reason: Recheck today's complaints, Continuance of care, Re-evaluation by your physician. Problem is new. Symptoms have improved. jr8
--- NOTE | 2017-08-19 19:15 | ER ---
Nurse's Notes [facility] Name: Teodoro Monte Age: 22 yrs Sex: Male : 1995 Arrival Date: 08/19/2017 Time: 15:13 Bed 28 Private MD: Diagnosis: Chest pain, unspecified Presentation: 08/19 15:47 Presenting complaint: Patient states: Reports SOB with tingling in finger that started aj today while watching TV. Also reports dizziness when walking. Transition of care: patient was not received from another setting of care. Onset of symptoms was August 19, 2017. Risk Assessment: Do you want to hurt yourself or someone else? Patient reports no desire to harm self or others. Initial Sepsis Screen: Does the patient meet any 2 criteria? No. Patient's initial sepsis screen is negative. Does the patient have a suspected source of infection? No. Patient's initial sepsis screen is negative. Care prior to arrival: None. 15:47 Method Of Arrival: Ambulatory aj 15:47 Acuity: JASBIR 4 aj Triage Assessment: 15:49 General: Appears in no apparent distress. comfortable, Behavior is calm, cooperative, aj appropriate for age. Pain: Denies pain. Neuro: Level of Consciousness is awake, alert, obeys commands, Oriented to person, place, time, situation, Appropriate for age. Respiratory: Reports shortness of breath Airway is patent Respiratory effort is even, unlabored, Respiratory pattern is regular, symmetrical, Onset: The symptoms/episode began/occurred suddenly, the patient has mild shortness of breath. Derm: Skin is intact, is healthy with good turgor, Skin is pink, warm \T\ dry. normal. Historical: - Allergies: 15:49 No Known Allergies; aj - Home Meds: 15:49 Naproxen Oral [Active]; aj - PMHx: 15:49 Heart Murmur; Anxiety; aj - PSHx: 15:49 None; aj - Immunization history:: Adult Immunizations up to date. - Social history:: Smoking status: Patient/guardian denies using tobacco. - Ebola Screening: : Patient negative for fever greater than or equal to 101.5 degrees Fahrenheit, and additional compatible Ebola Virus Disease symptoms Patient denies exposure to infectious person Patient denies travel to an Ebola-affected area in the 21 days before illness onset No symptoms or risks identified at this time. Screenin:30 Abuse screen: Denies threats or abuse. Denies injuries from another. Nutritional mg2 screening: No deficits noted. Tuberculosis screening: No symptoms or risk factors identified. Fall Risk IV access (20 points). Assessment: 16:00 General: Appears in no apparent distress. comfortable, Behavior is calm, cooperative. mg2 Pain: Complains of pain in chest pain Pain radiates to left arm Pain currently is 6 out of 10 on a pain scale. Quality of pain is described as burning, Pain began gradually, 1 day ago. Is intermittent, Alleviated by medications. Neuro: Level of Consciousness is awake, alert, obeys commands, Oriented to person, place, time, situation. Cardiovascular: Capillary refill < 3 seconds Patient's skin is warm and dry. 16:30 Cardiovascular: Reports chest pain, since yesterday. Respiratory: Airway is patent mg2 Respiratory effort is even, unlabored, Respiratory pattern is regular, symmetrical. GI: No signs and/or symptoms were reported involving the gastrointestinal system. : No signs and/or symptoms were reported regarding the genitourinary system. EENT: No signs and/or symptoms were reported regarding the EENT system. Derm: Skin is intact, Skin is pink, warm \T\ dry. normal. Musculoskeletal: No signs and/or symptoms reported regarding the musculoskeletal system. 16:45 Reassessment: Patient appears in no apparent distress at this time. Patient and/or mg2 family updated on plan of care and expected duration. Pain level reassessed. Patient is alert, oriented x 3, equal unlabored respirations, skin warm/dry/pink. 17:00 Cardiovascular: Rhythm is regular. mg2 19:01 Reassessment: Patient appears in no apparent distress at this time. Patient and/or mg2 family updated on plan of care and expected duration. Pain level reassessed. Patient is alert, oriented x 3, equal unlabored respirations, skin warm/dry/pink. Vital Signs: 15:49 BP 133 / 71; Pulse 78; Resp 19; Temp 98.1; Pulse Ox 98% on R/A; Weight 81.65 kg; Height aj 5 ft. 9 in. (175.26 cm); 16:44 BP 116 / 57; Pulse 58; Resp 18; Pulse Ox 98% on R/A; Pain 3/10; mg2 17:48 BP 135 / 69; Pulse 59; Resp 18; Pulse Ox 100% on R/A; Pain 0/10; mg2 19:01 BP 116 / 60; Pulse 55; Resp 18; Pulse Ox 100% ; Pain 0/10; mg2 15:49 Body Mass Index 26.58 (81.65 kg, 175.26 cm) ED Course: 15:13 Patient arrived in ED. rg4 15:48 Triage completed. aj 15:49 Arm band placed on left wrist. Patient placed in an exam room. aj 15:51 Jairo Castro PA is PHCP. jr8 15:51 Earnest Flores MD is Attending Physician. jr8 15:51 Moncho Ham, RIA is Primary Nurse. mg2 16:09 Inserted saline lock: 20 gauge in left forearm, using aseptic technique. Blood mg2 collected. 16:16 EKG done, by information technology specialist. reviewed by Jairo RANKIN. 3 16:25 X-ray completed. Portable x-ray completed in exam room. Patient tolerated procedure ml well. 16:27 XRAY Chest (1 view) In Process Unspecified. EDMS 16:31 Patient has correct armband on for positive identification. Placed in gown. Bed in low mg2 position. Side rails up X 1. Door closed. Warm blanket given. 17:49 No provider procedures requiring assistance completed. mg2 19:26 IV discontinued, intact, bleeding controlled, No redness/swelling at site. Pressure mg2 dressing applied. Administered Medications: 17:11 Drug: Aspirin Chewable Tablet 324 mg Route: PO; mg2 19:19 Follow up: Response: No adverse reaction mg2 Outcome: 19:14 Discharge ordered by . [facility] 19:25 Discharged to home ambulatory. mg2 19:25 Condition: stable 19:25 Discharge instructions given to patient, Instructed on discharge instructions, follow up and referral plans. Demonstrated understanding of instructions, follow-up care. 19:53 Patient left the ED. mg2 Signatures: Dispatcher [employer] EDMS Мария Rhodes RN RN aj Lopez, Melissa ml Roszak, Josh, PA PA jr8 Haley Crawford 4 Moncho Ham RN RN mg2 Larisa Cash 3 Corrections: (The following items were deleted from the chart) 17:49 17:48 Pulse 59bpm; Resp 18bpm; Pulse Ox 100% RA; Pain 0/10; mg2 mg2
[2017-08-19 19:59] VITALS: TEMP 98.1
[2017-08-19 20:01] VITALS: O2SAT 100
[2017-08-19 20:02] VITALS: BP 116/60
--- NOTE | 2017-08-19 21:31 | EKG ---
Test Date: 2017-08-19 Test Time: 16:06:58 Agriculture Manager: [place] MEASUREMENT RESULTS: Intervals: Rate: 67 MI: 168 QRSD: 106 QT: 386 QTc: 407 Lorraine: P: 0 MI: 168 QRS: -1 T: 1 INTERPRETIVE STATEMENTS: Normal sinus rhythm Voltage criteria for left ventricular hypertrophy ST elevation, consider early repolarization, pericarditis, or injury Abnormal ECG Compared to ECG 07/03/2017 10:33:59 Left ventricular hypertrophy now present ST (T wave) deviation now present Electronically Signed On 08-19-17 21:31:09 CDT by Ernesto Lemus
--- NOTE | 2017-08-20 15:33 | EKG ---
Test Date: 2017-08-19 Test Time: 18:48:03 Refueling Rampman: EVA MEASUREMENT RESULTS: Intervals: Rate: 59 RI: 162 QRSD: 106 QT: 410 QTc: 405 [place]clave: P: 50 RI: 162 QRS: 15 T: 20 INTERPRETIVE STATEMENTS: Sinus bradycardia Minimal voltage criteria for LVH, may be normal variant ST elevation, probably due to early repolarization Borderline ECG Compared to ECG 08/19/2017 16:06:58 Sinus rhythm no longer present ST (T wave) deviation still present Electronically Signed On 08-20-17 15:32:54 CDT by Ernesto Lemus
== END 2017-08-19 19:53 | disposition home or self-care (01) ==
LOC: ER 15:10
DX: R07.9 Chest pain, unspecified (principal); F41.9 Anxiety disorder, unspecified
CPT/HCPCS: 36415; 71045; 80048; 83735; 84484; 85025; 93005; 99284

== ENCOUNTER 2017-10-19 15:13 | Emergency (ER) | payer SELFPAY ==
--- NOTE | 2017-10-19 16:31 | ER ---
Nurse's Notes [facility] Name: Teodoro Monte Age: 22 yrs Sex: Male : 1995 Arrival Date: 10/19/2017 Time: 15:14 Bed 30 Private MD: Diagnosis: Blurred Vision Presentation: 10/19 15:57 Presenting complaint: Patient states: He's been having problems with his eye sight for aj1 the past couple months. Sometimes he has eye pain, and other times he has blurred vision and sees spots. Lately his tears have been burning his eyes, and today his vision has seemed "weird" and that some things seem like they are out of focus. Denies any injury to either eye. States he is having some blurred vision now, that when he blinks it gets better but then after a while it gets blurry again. Transition of care: patient was not received from another setting of care. Mechanism of Injury: No Mechanism of Injury. The patient denies any loss of vision. Onset of symptoms was August 2017. Risk Assessment: Do you want to hurt yourself or someone else? Patient reports no desire to harm self or others. Initial Sepsis Screen: Does the patient meet any 2 criteria? No. Patient's initial sepsis screen is negative. Does the patient have a suspected source of infection? No. Patient's initial sepsis screen is negative. Care prior to arrival: None. 15:57 Method Of Arrival: Ambulatory aj 15:57 Acuity: JASBIR 4 aj1 Triage Assessment: 16:01 General: Appears in no apparent distress. comfortable, Behavior is calm, cooperative, aj1 appropriate for age. Pain: Denies pain. EENT: Reports blurred vision that is resolved with blinking. Neuro: Level of Consciousness is awake, alert, obeys commands. Cardiovascular: Patient's skin is warm and dry. Respiratory: Airway is patent Respiratory effort is even, unlabored, Respiratory pattern is regular, symmetrical. Historical: - Allergies: 16:01 No Known Allergies; aj1 - Home Meds: 16:01 None [Active]; aj1 - PMHx: 16:01 Anxiety; Heart Murmur; aj1 - PSHx: 16:01 None; aj1 - Immunization history:: Flu vaccine is not up to date. - Social history:: Smoking status: Patient/guardian denies using tobacco. - Ebola Screening: : Patient denies travel to an Ebola-affected area in the 21 days before illness onset. - Family history:: not pertinent. - Hospitalizations: : No recent hospitalization is reported. Screenin:20 Abuse screen: Denies threats or abuse. Denies injuries from another. rv 16:20 Nutritional screening: No deficits noted. Tuberculosis screening: No symptoms or risk rv factors identified. Fall Risk None identified. Assessment: 16:20 General: Appears in no apparent distress. comfortable, Behavior is calm, cooperative. rv 16:20 Pain: Complains of pain in eye. Neuro: Level of Consciousness is awake, alert, obeys rv commands, Oriented to person, place, time, situation. Cardiovascular: Capillary refill < 3 seconds. Respiratory: Airway is patent. GI: No signs and/or symptoms were reported involving the gastrointestinal system. : No signs and/or symptoms were reported regarding the genitourinary system. EENT: Eyes normal. Sclera/Cornea. Derm: Skin is intact. Vital Signs: 16:01 BP 126 / 77; Pulse 58; Resp 16; Temp 97.4; Pulse Ox 100% on R/A; Weight 77.11 kg (R); aj1 Height 5 ft. 9 in. (175.26 cm) (R); Pain 0/10; 16:01 Body Mass Index 25.10 (77.11 kg, 175.26 cm) aj1 Visual Acuity: 16:35 Left Eye Pupil size 2 mm, Normal, React To Light, Reactive To Accomodation; Right Eye rv Pupil size 2 mm, Normal, React To Light, Reactive To Accomodation; Without Lenses; ED Course: 15:14 Patient arrived in ED. as 16:00 Triage completed. aj1 16:01 Arm band placed on Patient placed in waiting room. aj1 16:10 Earnest Flores MD is Attending Physician. rn 16:20 Patient has correct armband on for positive identification. Bed in low position. Call rv light in reach. Side rails up X 1. 16:20 Pulse ox on. rv 16:30 Angélica Wong MD is Referral Physician. rn 16:36 No provider procedures requiring assistance completed. Patient did not have IV access rv during this emergency room visit. Administered Medications: No medications were administered Outcome: 16:31 Discharge ordered by . rn 16:36 Discharged to home ambulatory. rv 16:36 Condition: good 16:36 Discharge instructions given to patient, Instructed on discharge instructions, follow up and referral plans. Demonstrated understanding of instructions, follow-up care. 16:36 Patient left the ED. rv Signatures: Malathi Felton RN RN aj1 Juliette Sal Roman, MD MD rn Vicente, Ronaldo, RN RN rv Corrections: (The following items were deleted from the chart) 16:00 15:57 Presenting complaint: Patient states: He's been having problems with his eye aj1 sight for the past couple months. Sometimes he has eye pain, and other times he has blurred vision and sees spots. Lately his tears have been burning his eyes, and today his vision has seemed "weird" and that some things seem like they are out of focus. Denies any injury to either eye aj1
--- NOTE | 2017-10-19 16:32 | EDPHYS ---
Physician Documentation [facility] Name: Teodoro Monte Age: 22 yrs Sex: Male : 1995 Arrival Date: 10/19/2017 Time: 15:14 Bed 30 Private MD: ED Physician Earnest Flores HPI: 10/19 16:26 This 22 yrs old Male presents to ER via Ambulatory with complaints of Eye rn Pain, Blurred Vision. 16:26 This 22 yrs old Male presents to ER via Ambulatory with complaints of Blurred rn Vision. 16:26 The patient is experiencing blurred vision, The patient sustained None. to both eyes, rn caused by an unknown mechanism. Onset: The symptoms/episode began/occurred 3 month(s) ago. Aggravated by nothing. Alleviated by nothing. Associated signs and symptoms: Pertinent positives: None. Severity of symptoms: At their worst the symptoms were mild in the emergency department the symptoms are unchanged. The patient has experienced similar episodes in the past. Reports intermittent episodes of blurry vision, spots, headaches behind eyes, sometimes in his left eye, sometimes in right eye, currently reports very mild blurred vision, hasn't seen an eye doctor, no trauma. . Historical: - Allergies: 16:01 No Known Allergies; aj1 - Home Meds: 16:01 None [Active]; aj1 - PMHx: 16:01 Anxiety; Heart Murmur; aj1 - PSHx: 16:01 None; aj1 - Immunization history:: Flu vaccine is not up to date. - Social history:: Smoking status: Patient/guardian denies using tobacco. - Ebola Screening: : Patient denies travel to an Ebola-affected area in the 21 days before illness onset. - Family history:: not pertinent. - Hospitalizations: : No recent hospitalization is reported. ROS: 16:26 Constitutional: Negative for fever, chills, and weight loss, Eyes: Negative for injury, rn pain, redness, and discharge, ENT: Negative for injury, pain, and discharge, Neuro: Negative for weakness, numbness, tingling, and seizure. Exam: 16:26 Constitutional: This is a well developed, well nourished patient who is awake, alert, rn and in no acute distress. Head/Face: Normocephalic, atraumatic. Eyes: Pupils equal round and reactive to light, extra-ocular motions intact. Lids and lashes normal. Conjunctiva and sclera are non-icteric and not injected. Cornea within normal limits. Periorbital areas with no swelling, redness, or edema. Neuro: Awake and alert, GCS 15, oriented to person, place, time, and situation. Cranial nerves II-XII grossly intact. Motor strength 5/5 in all extremities. Sensory grossly intact. Cerebellar exam normal. Normal gait. Vital Signs: 16:01 BP 126 / 77; Pulse 58; Resp 16; Temp 97.4; Pulse Ox 100% on R/A; Weight 77.11 kg (R); aj1 Height 5 ft. 9 in. (175.26 cm) (R); Pain 0/10; 16:01 Body Mass Index 25.10 (77.11 kg, 175.26 cm) aj1 Visual Acuity: 16:35 Left Eye Pupil size 2 mm, Normal, React To Light, Reactive To Accomodation; Right Eye rv Pupil size 2 mm, Normal, React To Light, Reactive To Accomodation; Without Lenses; MDM: 16:10 Patient medically screened. rn 16:26 Differential diagnosis: retinal problems, floaters, flashers, need for eye correction. rn Data reviewed: vital signs, nurses notes, and as a result, I will discharge patient. Counseling: I had a detailed discussion with the patient and/or guardian regarding: the historical points, exam findings, and any diagnostic results supporting the discharge/admit diagnosis, the need for outpatient follow up, to return to the emergency department if symptoms worsen or persist or if there are any questions or concerns that arise at home. Special discussion: I discussed with the patient/guardian in detail that at this point there is no indication for admission to the hospital. It is understood, however, that if the symptoms persist or worsen the patient needs to return immediately for re-evaluation. Based on the history and exam findings, there is no indication for further emergent testing or inpatient evaluation. I discussed with the patient/guardian the need to see the opthamologist for further evaluation of the symptoms. Administered Medications: No medications were administered Disposition: 10/19/17 16:31 Discharged to Home. Impression: Blurred Vision. - Condition is Stable. - Discharge Instructions: Blurred Vision, Adult. - Medication Reconciliation Form, Thank You Letter, Antibiotic Education, Prescription Opioid Use form. - Follow up: Angélica Wong MD; When: As needed; Reason: Recheck today's complaints, Re-evaluation by your physician. - Problem is an ongoing problem. - Symptoms are unchanged. Signatures: Malathi Felton RN RN aj1 Earnest Flores MD MD rn Rey Moody RN RN rv Corrections: (The following items were deleted from the chart) 16:36 16:31 10/19/2017 16:31 Discharged to Home. Impression: Blurred Vision. Condition is rv Stable. Forms are Medication Reconciliation Form, Thank You Letter, Antibiotic Education, Prescription Opioid Use. Follow up: Angélica Wong; When: As needed; Reason: Recheck today's complaints, Re-evaluation by your physician. Problem is an ongoing problem. Symptoms are unchanged. rn
[2017-10-19 16:43] VITALS: BP 126/77; TEMP 97.4; O2SAT 100
== END 2017-10-19 16:36 | disposition home or self-care (01) ==
LOC: ER 15:13
DX: H53.8 Other visual disturbances (principal)
CPT/HCPCS: 99283

== ENCOUNTER 2018-01-24 04:47 | Emergency (ER) | payer SELFPAY ==
--- NOTE | 2018-01-24 05:08 | ER ---
Nurse's Notes [facility] Name: Teodoro Monte Age: 23 yrs Sex: Male : 1995 Arrival Date: 01/24/2018 Time: 04:49 Bed 20 Private MD: Diagnosis: Chest pain on breathing Presentation: 01/24 05:04 Presenting complaint: Patient states: Mid sternal chest pain that began 2 hours ago, lp1 patient states eating pizza 1 hour before; continues burping with no relief; States pain increased with movement. Transition of care: patient was not received from another setting of care. Onset of symptoms was January 24, 2018 at 03:00. Risk Assessment: Do you want to hurt yourself or someone else? Patient reports no desire to harm self or others. Initial Sepsis Screen: Does the patient meet any 2 criteria? No. Patient's initial sepsis screen is negative. Does the patient have a suspected source of infection? No. Patient's initial sepsis screen is negative. Care prior to arrival: None. 05:04 Method Of Arrival: Ambulatory lp1 05:04 Acuity: JASBIR 3 lp1 Historical: - Allergies: 05:06 No Known Allergies; lp1 - Home Meds: 05:06 None [Active]; lp1 - PMHx: 05:06 Anxiety; Heart Murmur; lp1 - PSHx: 05:06 None; lp1 - Immunization history:: Adult Immunizations up to date. - Social history:: Patient/guardian denies using alcohol, street drugs, The patient lives with family, Smoking status: Patient uses tobacco products, denies chronic smoking, but will smoke occasionally. - Family history:: not pertinent. - Ebola Screening: : No symptoms or risks identified at this time. Screenin:06 Abuse screen: Denies threats or abuse. Denies injuries from another. Nutritional lp1 screening: No deficits noted. Tuberculosis screening: No symptoms or risk factors identified. Fall Risk None identified. Assessment: 05:15 General: Appears in no apparent distress. Behavior is calm, cooperative, appropriate lp1 for age. Pain: Complains of pain in mid-sternal area Pain does not radiate. Pain currently is 0 out of 10 on a pain scale. Pain began 2 hours ago. Neuro: Level of Consciousness is awake, alert, obeys commands, Oriented to person, place, time, situation. Cardiovascular: Patient's skin is warm and dry. Rhythm is sinus rhythm. Respiratory: Reports shortness of breath Respiratory effort is even, unlabored, Respiratory pattern is regular, Breath sounds are clear bilaterally. Onset: The symptoms/episode began/occurred gradually. GI: No signs and/or symptoms were reported involving the gastrointestinal system. : No signs and/or symptoms were reported regarding the genitourinary system. EENT: No signs and/or symptoms were reported regarding the EENT system. Derm: Skin is pink, warm \T\ dry. Musculoskeletal: Circulation, motion, and sensation intact. 06:12 Reassessment: Patient appears in no apparent distress at this time. Patient states lp1 feeling better. Patient states symptoms have improved. Vital Signs: 05:05 BP 113 / 86; Pulse 74; Resp 16; Temp 98.8(O); Pulse Ox 99% on R/A; Weight 81.65 kg; lp1 Height 5 ft. 9 in. (175.26 cm); Pain 0/10; 05:55 BP 130 / 79; Pulse 73; Resp 16; Pulse Ox 99% on R/A; lp1 05:05 Body Mass Index 26.58 (81.65 kg, 175.26 cm) lp1 ED Course: 04:49 Patient arrived in ED. al2 04:53 Khris Mckeon MD is Attending Physician. ma2 05:04 Sheila Martines, RIA is Primary Nurse. lp1 05:05 Triage completed. lp1 05:05 Arm band placed on left wrist. lp1 05:07 Patient has correct armband on for positive identification. Pulse ox on. NIBP on. lp1 05:07 Patient maintains SpO2 saturation greater than 95% on room air. lp1 06:12 No provider procedures requiring assistance completed. Patient did not have IV access lp1 during this emergency room visit. Administered Medications: 05:25 Drug: [place] 5 mg-325 mg 1 tabs Route: PO; lp1 06:13 Follow up: Response: Pain is decreased lp1 Outcome: 05:07 Discharge ordered by . ma2 06:12 Discharged to home ambulatory. lp1 06:12 Condition: good 06:12 Discharge instructions given to patient, Instructed on discharge instructions, follow up and referral plans. medication usage, Demonstrated understanding of instructions, follow-up care, medications, Prescriptions given X 1. 06:13 Patient left the ED. lp1 Signatures: Sheila Martines RN RN lp1 Monique Bull Mohammad, MD MD ma2 Corrections: (The following items were deleted from the chart) 05:26 05:05 BP 113 / 86; Pulse 74bpm; Resp 16bpm; Pulse Ox 99% RA; 81.65 kg; Height 5 ft. 9 lp1 in.; BMI: 26.5; Pain 0/10; lp1
--- NOTE | 2018-01-24 05:08 | EDPHYS ---
Physician Documentation [facility] Name: Teodoro Monte Age: 23 yrs Sex: Male : 1995 Arrival Date: 01/24/2018 Time: 04:49 Bed 20 Private MD: ED Physician Khris Mckeon HPI: 01/24 05:04 This 23 yrs old Male presents to ER via Unassigned with complaints of Chest ma2 Pain, Shortness Of Breath. 05:04 The patient or guardian reports chest pain that is located primarily in the anterior ma2 chest wall. The pain does not radiate. Associated signs and symptoms: Pertinent negatives: abdominal pain, cough, diaphoresis, headache, lower extremity swelling, lightheadedness, near syncope, recent travel, shortness of breath, vomiting. The chest pain is described as burning. Duration: The patient or guardian reports a single episode, that is still ongoing, and unchanged. Severity of pain: At its worst the pain was mild in the emergency department the pain is unchanged. The patient has experienced a previous episode. 05:04 chest pain worse with movement and deep breath . ma2 Historical: - Allergies: 05:06 No Known Allergies; lp1 - Home Meds: 05:06 None [Active]; lp1 - PMHx: 05:06 Anxiety; Heart Murmur; lp1 - PSHx: 05:06 None; lp1 - Immunization history:: Adult Immunizations up to date. - Social history:: Patient/guardian denies using alcohol, street drugs, The patient lives with family, Smoking status: Patient uses tobacco products, denies chronic smoking, but will smoke occasionally. - Family history:: not pertinent. - Ebola Screening: : No symptoms or risks identified at this time. ROS: 05:04 Constitutional: Negative for fever, chills, and weight loss. ma2 05:04 Respiratory: Negative for shortness of breath, cough, wheezing, and pleuritic chest pain, Abdomen/GI: Negative for abdominal pain, nausea, diarrhea, and constipation, MS/Extremity: Negative for injury and deformity. 05:04 Cardiovascular: Positive for chest pain, Negative for edema, orthopnea, palpitations, paroxysmal nocturnal dyspnea. 05:04 All other systems are negative. Exam: 05:04 Constitutional: This is a well developed, well nourished patient who is awake, alert, ma2 and in no acute distress. Neck: Trachea midline, no thyromegaly or masses palpated, and no cervical lymphadenopathy. Supple, full range of motion without nuchal rigidity, or vertebral point tenderness. No Meningismus. Cardiovascular: Regular rate and rhythm with a normal S1 and S2. No gallops, murmurs, or rubs. Normal PMI, no JVD. No pulse deficits. Respiratory: Lungs have equal breath sounds bilaterally, clear to auscultation and percussion. No rales, rhonchi or wheezes noted. No increased work of breathing, no retractions or nasal flaring. Abdomen/GI: Soft, non-tender, with normal bowel sounds. No distension or tympany. No guarding or rebound. No evidence of tenderness throughout. MS/ Extremity: Pulses equal, no cyanosis. Neurovascular intact. Full, normal range of motion. Neuro: Awake and alert, GCS 15, oriented to person, place, time, and situation. Cranial nerves II-XII grossly intact. Motor strength 5/5 in all extremities. Sensory grossly intact. Cerebellar exam normal. Normal gait. 05:04 Chest/axilla: Palpation: tenderness, that is mild. Vital Signs: 05:05 BP 113 / 86; Pulse 74; Resp 16; Temp 98.8(O); Pulse Ox 99% on R/A; Weight 81.65 kg; lp1 Height 5 ft. 9 in. (175.26 cm); Pain 0/10; 05:55 BP 130 / 79; Pulse 73; Resp 16; Pulse Ox 99% on R/A; lp1 05:05 Body Mass Index 26.58 (81.65 kg, 175.26 cm) lp1 MDM: 04:53 Patient medically screened. ma2 05:04 Differential diagnosis: anxiety, chest wall pain, costochondritis, gastritis. HEART ma2 Score: History: ECG:. The patient's pulmonary embolism risk score was calculated as follows: No Risks (0 Pts). WHITNEY Risk Score: not applicable. Data reviewed: vital signs, nurses notes. Counseling: I had a detailed discussion with the patient and/or guardian regarding: the historical points, exam findings, and any diagnostic results supporting the discharge/admit diagnosis, the presence of at least one elevated blood pressure reading (>120/80) during this emergency department visit, the need for outpatient follow up. Response to treatment: the patient's symptoms have markedly improved after treatment. 01/24 05:04 Order name: EKG - Nurse/Tech; Complete Time: 05:25 ma2 Administered Medications: 05:25 Drug: [place] 5 mg-325 mg 1 tabs Route: PO; lp1 06:13 Follow up: Response: Pain is decreased lp1 Disposition: 01/24/18 05:07 Discharged to Home. Impression: Chest pain on breathing. - Condition is Stable. - Discharge Instructions: Chest Wall Pain. - Prescriptions for Tylenol- Codeine #3 300-30 mg Oral Tablet - take 2 tablet by ORAL route every 6 hours As needed; 30 tablet. - Medication Reconciliation Form, Thank You Letter, Antibiotic Education, Prescription Opioid Use form. - Follow up: Private Physician; When: Tomorrow; Reason: Continuance of care. Signatures: Sheila Martines RN RN lp1 Khris Mckeon MD MD ma2 Corrections: (The following items were deleted from the chart) 06:13 05:07 01/24/2018 05:07 Discharged to Home. Impression: Chest pain on breathing. lp1 Condition is Stable. Forms are Medication Reconciliation Form, Thank You Letter, Antibiotic Education, Prescription Opioid Use. Follow up: Private Physician; When: Tomorrow; Reason: Continuance of care. ma2
[2018-01-24] MEDS ORDERED: HYDROCODONE/APAP 5/325 MG TAB ONE (05:18)
[2018-01-24 06:19] VITALS: TEMP 98.8; O2SAT 99
[2018-01-24 06:21] VITALS: BP 130/79
--- NOTE | 2018-01-25 11:34 | EKG ---
Test Date: 2018-01-24 Test Time: 05:14:47 Commutator Tester: MADHAVI MEASUREMENT RESULTS: Intervals: Rate: 66 MI: 154 QRSD: 104 QT: 382 QTc: 400 [place]: P: -2 MI: 154 QRS: 5 T: -3 INTERPRETIVE STATEMENTS: Normal sinus rhythm Early repolarization Abnormal ECG Compared to ECG 08/19/2017 18:48:03 no significant change from previous ECG Electronically Signed On 01-25-18 11:34:06 [employer] by Ernesto Lemus
== END 2018-01-24 06:13 | disposition home or self-care (01) ==
LOC: ER 04:47
DX: R07.1 Chest pain on breathing (principal); Z72.0 Tobacco use
CPT/HCPCS: 93005; 99284

== ENCOUNTER 2018-05-14 07:19 | Emergency (ER) | payer SELFPAY ==
--- NOTE | 2018-05-14 08:02 | RAD REPORT ---
EXAM DESCRIPTION: CT - Head Brain Wo Cont - 05/14/2018 7:48 am CLINICAL HISTORY: Headache COMPARISON: None. TECHNIQUE: Axial 5 mm thick images of the head were obtained without IV contrast. All CT scans are performed using dose optimization technique as appropriate and may include automated exposure control or mA/KV adjustment according to patient size. FINDINGS: No intracranial hemorrhage, mass, edema or shift of mid-line structures. No acute infarcti on changes seen. No abnormal extra-axial fluid collections. Ventricles are normal. Mastoid air cells and visualized portions of the paranasal sinuses are clear. No acute bony findings. IMPRESSION: Negative non-contrast CT head examination.
--- NOTE | 2018-05-14 08:16 | EDPHYS ---
Physician Documentation [facility] Name: Teodoro Monte Age: 23 yrs Sex: Male : 1995 Arrival Date: 05/14/2018 Time: 07:22 Bed 19 Private MD: None, None ED Physician Earnest Flores HPI: 05/14 07:32 This 23 yrs old Male presents to ER via Unassigned with complaints of Headache.rn 07:32 The patient complains of pain to the top of head, left side of the back of head, left rn occipital area, right side of the back of head and right occipital area. The patient describes the headache as aching, intermittent. Onset: The symptoms/episode began/occurred 2 month(s) ago. Associated signs and symptoms: Pertinent positives: malaise, Photophobia Pertinent negatives: altered mental status, fever, neck stiffness, paresthesias, rash, vision loss, vertigo. Severity of symptoms: At its worst the pain was mild, in the emergency department the pain has improved. The symptoms are alleviated by nothing. the symptoms are aggravated by lights. The patient has experienced similar episodes in the past. The patient has not recently seen a physician. Reports headache on and off for "months", goes away on own and returns, no trauma, no famhx of intracranial problems, no fever, no vision loss, no focal neurological problems. . Historical: - Allergies: 07:36 No Known Allergies; bp - Home Meds: 07:36 None [Active]; bp - PMHx: 07:36 Anxiety; Heart Murmur; bp - Immunization history:: Adult Immunizations up to date. - Social history:: Smoking status: unknown. - Family history:: not pertinent. - Ebola Screening: : Patient negative for fever greater than or equal to 101.5 degrees Fahrenheit, and additional compatible Ebola Virus Disease symptoms Patient denies exposure to infectious person Patient denies travel to an Ebola-affected area in the 21 days before illness onset No symptoms or risks identified at this time. - Hospitalizations: : No recent hospitalization is reported. ROS: 07:32 Constitutional: Negative for fever, chills, and weight loss, Eyes: Negative for injury, rn pain, redness, and discharge, Neck: Negative for injury, pain, and swelling, Cardiovascular: Negative for chest pain, palpitations, and edema, Respiratory: Negative for shortness of breath, cough, wheezing, and pleuritic chest pain, Abdomen/GI: Negative for abdominal pain, nausea, vomiting, diarrhea, and constipation, MS/Extremity: Negative for injury and deformity, Skin: Negative for injury, rash, and discoloration, Neuro: + headache, + malaise with generalized weakness, no focal weakness/paresthesias Exam: 07:32 Constitutional: This is a well developed, well nourished patient who is awake, alert, rn and in no acute distress. Head/Face: Normocephalic, atraumatic. Eyes: Pupils equal round and reactive to light, extra-ocular motions intact. Lids and lashes normal. Conjunctiva and sclera are non-icteric and not injected. Cornea within normal limits. Periorbital areas with no swelling, redness, or edema. ENT: MMM Neck: Trachea midline, no thyromegaly or masses palpated, and no cervical lymphadenopathy. Supple, full range of motion without nuchal rigidity, or vertebral point tenderness. No Meningismus. Skin: Warm, dry, no rash MS/ Extremity: Pulses equal, no cyanosis. Neurovascular intact. Full, normal range of motion. Equal circumference. Neuro: Awake and alert, GCS 15, oriented to person, place, time, and situation. Cranial nerves II-XII grossly intact. Motor strength 5/5 in all extremities. Sensory grossly intact. Cerebellar exam normal. Normal gait. Ambulatory to room without difficulty. Vital Signs: 07:36 BP 133 / 80; Pulse 99; Resp 16; Temp 97.8; Pulse Ox 99% ; Weight 81.65 kg; Height 5 ft. bp 9 in. (175.26 cm); 08:15 BP 123 / 75; Pulse 91; Resp 16; Pulse Ox 99% ; bp 07:36 Body Mass Index 26.58 (81.65 kg, 175.26 cm) bp Shiloh Coma Score: 08:14 Eye Response: spontaneous(4). Verbal Response: oriented(5). Motor Response: obeys rn commands(6). Total: 15. MDM: 07:26 Patient medically screened. rn 08:14 Differential diagnosis: migraine, sinusitis, tension headache, vasomotor headache. Data rn reviewed: vital signs, nurses notes, radiologic studies, CT scan, and as a result, I will discharge patient. Counseling: I had a detailed discussion with the patient and/or guardian regarding: the historical points, exam findings, and any diagnostic results supporting the discharge/admit diagnosis, radiology results, the need for outpatient follow up, to return to the emergency department if symptoms worsen or persist or if there are any questions or concerns that arise at home. Special discussion: I discussed with the patient/guardian in detail that at this point there is no indication for admission to the hospital. It is understood, however, that if the symptoms persist or worsen the patient needs to return immediately for re-evaluation. Based on the history and exam findings, there is no indication for further emergent testing or inpatient evaluation. I discussed with the patient/guardian the need to see the neurologist for further evaluation of the symptoms. 05/14 07:31 Order name: CT Head Brain wo Cont; Complete Time: 08:14 rn Administered Medications: No medications were administered Disposition: 05/14/18 08:15 Discharged to Home. Impression: Headache. - Condition is Stable. - Discharge Instructions: General Headache Without Cause. - Medication Reconciliation Form, Thank You Letter, Antibiotic Education, Prescription Opioid Use form. - Follow up: Wilian Lazcano MD; When: As needed; Reason: Recheck today's complaints, Re-evaluation by your physician. - Problem is an ongoing problem. - Symptoms have improved. Signatures: Dispatcher [employer] EDMS Earnest Flores MD MD rn Peltier, Brian, RN RN bp Corrections: (The following items were deleted from the chart) 08:22 08:15 05/14/2018 08:15 Discharged to Home. Impression: Headache. Condition is Stable. bp Forms are Medication Reconciliation Form, Thank You Letter, Antibiotic Education, Prescription Opioid Use. Follow up: Wilian Lazcano; When: As needed; Reason: Recheck today's complaints, Re-evaluation by your physician. Problem is an ongoing problem. Symptoms have improved. rn
--- NOTE | 2018-05-14 08:16 | ER ---
Nurse's Notes [facility] Name: Teodoro Monte Age: 23 yrs Sex: Male : 1995 Arrival Date: 05/14/2018 Time: 07:22 Bed 19 Private MD: None, None Diagnosis: Headache Presentation: 05/14 07:34 Presenting complaint: Patient states: PER PT "I'VE BEEN HAVING THESE HEADACHES FOR bp MONTHS, JUST LIKE A PINCH HERE AND A THROBBING THERE. AND MY GUT IS USUALLY RIGHT AND I THINK I HAVE TOO MUCH FLUID IN MY BRAIN.". Transition of care: patient was not received from another setting of care. Onset of symptoms is unknown. Risk Assessment: Do you want to hurt yourself or someone else? Patient reports no desire to harm self or others. Initial Sepsis Screen: Does the patient meet any 2 criteria? No. Patient's initial sepsis screen is negative. Does the patient have a suspected source of infection? No. Patient's initial sepsis screen is negative. Care prior to arrival: None. 07:34 Method Of Arrival: Ambulatory bp 07:34 Acuity: JASBIR 4 bp Triage Assessment: 07:36 Headache History: The patient has had previous headaches and this one is similar to bp previous episodes. General: Appears in no apparent distress. comfortable, Behavior is calm, cooperative, appropriate for age. Pain: Complains of pain in back of head and top of head Pain currently is 3 out of 10 on a pain scale. Pain began MONTHS AGO Also complains of nausea, photophobia. EENT: No signs and/or symptoms were reported regarding the EENT system. Neuro: Level of Consciousness is awake, alert, obeys commands, Oriented to person, place, time, situation, Appropriate for age Program Development Specialist are equal bilaterally Moves all extremities. Full function Gait is steady, Speech is normal, Facial symmetry appears normal. Cardiovascular: No deficits noted. Respiratory: Airway is patent Respiratory effort is even, unlabored, Respiratory pattern is regular, symmetrical. GI: No signs and/or symptoms were reported involving the gastrointestinal system. : No signs and/or symptoms were reported regarding the genitourinary system. Derm: No deficits noted. Musculoskeletal: Circulation, motion, and sensation intact. Range of motion: intact in all extremities. Historical: - Allergies: 07:36 No Known Allergies; bp - Home Meds: 07:36 None [Active]; bp - PMHx: 07:36 Anxiety; Heart Murmur; bp - Immunization history:: Adult Immunizations up to date. - Social history:: Smoking status: unknown. - Family history:: not pertinent. - Ebola Screening: : Patient negative for fever greater than or equal to 101.5 degrees Fahrenheit, and additional compatible Ebola Virus Disease symptoms Patient denies exposure to infectious person Patient denies travel to an Ebola-affected area in the 21 days before illness onset No symptoms or risks identified at this time. - Hospitalizations: : No recent hospitalization is reported. Screenin:03 Abuse screen: Denies threats or abuse. Denies injuries from another. Nutritional bp screening: No deficits noted. Tuberculosis screening: No symptoms or risk factors identified. Fall Risk None identified. Assessment: 07:35 General: SEE TRIAGE NOTE. Pain: Complains of pain in back of head and top of head. bp 08:03 Reassessment: PT RETURNED FROM CT. bp 08:20 Reassessment: PT D/C HOME AMBULATORY, DX WITH HEADACHE. bp Vital Signs: 07:36 BP 133 / 80; Pulse 99; Resp 16; Temp 97.8; Pulse Ox 99% ; Weight 81.65 kg; Height 5 ft. bp 9 in. (175.26 cm); 08:15 BP 123 / 75; Pulse 91; Resp 16; Pulse Ox 99% ; bp 07:36 Body Mass Index 26.58 (81.65 kg, 175.26 cm) bp Enrique Coma Score: 08:14 Eye Response: spontaneous(4). Verbal Response: oriented(5). Motor Response: obeys rn commands(6). Total: 15. ED Course: 07:22 Patient arrived in ED. mr 07:22 None, None is Private Physician. mr 07:26 Earnest Flores MD is Attending Physician. rn 07:33 Janusz Long, RIA is Primary Nurse. bp 07:36 Triage completed. bp 07:36 Arm band placed on. bp 07:49 CT Head Brain wo Cont In Process Unspecified. EDMS 08:03 Patient has correct armband on for positive identification. Bed in low position. Call bp light in reach. Side rails up X2. 08:15 Wilian Lazcano MD is Referral Physician. rn 08:20 No provider procedures requiring assistance completed. Patient did not have IV access bp during this emergency room visit. Administered Medications: No medications were administered Outcome: 08:15 Discharge ordered by . rn 08:21 Discharged to home ambulatory. bp 08:21 Condition: stable 08:21 Discharge instructions given to patient, Instructed on discharge instructions, follow up and referral plans. Demonstrated understanding of instructions, follow-up care. 08:22 Patient left the ED. bp Signatures: Dispatcher [employer] EDWI BunnFederica Roman, MD MD rn Janusz Long RN RN bp
[2018-05-14 08:32] VITALS: TEMP 97.8; O2SAT 99
[2018-05-14 08:33] VITALS: BP 123/75
== END 2018-05-14 08:22 | disposition home or self-care (01) ==
LOC: ER 07:19
DX: R51 Headache (principal); F41.9 Anxiety disorder, unspecified
CPT/HCPCS: 70450; 99283

== ENCOUNTER 2018-06-04 11:31 | Emergency (ER) | payer SELFPAY ==
[2018-06-04] MEDS ORDERED: ONDANSETRON 4 MG/2 ML VIAL ONE (12:08)
[2018-06-04] MEDS ORDERED: NA CHLORIDE 0.9% 1,000 ML ONE (12:09)
[2018-06-04 12:12] LABS: Absolute Monocytes 0.7 K/uL (0.1-1.3); Absolute Neutrophil 4.6 K/uL (1.8-8.0); Basophils % 0.6 % (0-1.3); Eosinophils % 1.6 % (0-4.4); Hematocrit 46.7 % (39.6-49.0); Lymphocytes % 26.7 % (15.3-44.8); MPV 8.3 fL (7.6-11.3); Monocytes % 8.9 % (3.3-12.3); RBC Red Blood Cell Count 5.15 M/uL (4.33-5.43)
[2018-06-04 12:18] LABS: ALT/SGPT 84 U/L (12-78); AST/SGOT 34 U/L (15-37); Albumin 4.2 g/dL (3.4-5.0); Alkaline Phosphatase 113 U/L (45-117); BUN Blood Urea Nitrogen 12 mg/dL (7-18); Bicarbonate 26 mmol/L (21-32); Bilirubin Direct < 0.1 mg/dL (0-0.2); Bilirubin Total 0.3 mg/dL (0.2-1.0); Glucose Level 106 mg/dL (74-106); Lipase 107 U/L (73-393); Potassium 3.8 mmol/L (3.5-5.1); Sodium Level 142 mmol/L (136-145)
[2018-06-04 12:37] LABS: Blood Morphology Comment NOT SEEN (NOT SEEN); Platelet Estimate ADEQ
--- NOTE | 2018-06-04 13:05 | ER ---
Nurse's Notes [facility] Name: Teodoro Monte Age: 23 yrs Sex: Male : 1995 Arrival Date: 06/04/2018 Time: 11:37 Bed 23 Private MD: Diagnosis: Nausea;Anxiety disorder, unspecified Presentation: 06/04 11:38 Presenting complaint: Patient states: "I just wasn't feeling right. I couldn't go to sleep, so that really worried me and I couldn't get ahold of anyone so I went to the police station for help." Pt reports intermittent dizziness and nausea. Denies abd pain. Reports mild chest discomfort 2/10. States this feels different than other panic attacks in the past. Transition of care: patient was not received from another setting of care. Onset of symptoms was June 04, 2018. Risk Assessment: Do you want to hurt yourself or someone else? Patient reports no desire to harm self or others. Initial Sepsis Screen: Does the patient meet any 2 criteria? No. Patient's initial sepsis screen is negative. Does the patient have a suspected source of infection? No. Patient's initial sepsis screen is negative. Care prior to arrival: None. 11:38 Method Of Arrival: Ambulatory 11:38 Acuity: JASBIR 3 ss Historical: - Allergies: 11:43 No Known Allergies; ss - Home Meds: 11:43 None [Active]; ss - PMHx: 11:43 Anxiety; Heart Murmur; ss - PSHx: 11:43 None; ss - Immunization history:: Adult Immunizations up to date. - Social history:: Smoking status: Patient/guardian denies using tobacco, Patient uses alcohol, only on a social basis. Patient/guardian denies using street drugs. - Ebola Screening: : Patient denies exposure to infectious person Patient denies travel to an Ebola-affected area in the 21 days before illness onset. Screenin:52 Abuse screen: Denies threats or abuse. Denies injuries from another. Nutritional ss screening: No deficits noted. Tuberculosis screening: Never had TB. Fall Risk None identified. Assessment: 11:38 General: Appears uncomfortable, Behavior is anxious, Denies fever, fatigue, chills. ss Pain: Complains of pain in chest Pain currently is 2 out of 10 on a pain scale. Quality of pain is described as Pt believes it may be indigestion, feels like pressure. Is intermittent. Neuro: Level of Consciousness is awake, alert, obeys commands, Oriented to person, place, time, situation, Reports dizziness, insomnia since last night. Denies blurred vision. Cardiovascular: Capillary refill < 3 seconds is brisk in bilateral fingers. Respiratory: Airway is patent Respiratory effort is even, unlabored, Respiratory pattern is regular, symmetrical. GI: Abdomen is non-distended, Patient currently denies diarrhea. GI: Reports nausea, vomiting, that began this morning. : No signs and/or symptoms were reported regarding the genitourinary system. Denies burning with urination, urinary frequency. EENT: Oral mucosa is moist. Throat is clear. Derm: Skin is intact, is healthy with good turgor, Skin is dry, Skin is pink, warm \\T\\ dry. normal. Musculoskeletal: Circulation, motion, and sensation intact. Range of motion: intact in all extremities, Swelling absent. Vital Signs: 11:43 BP 133 / 82; Pulse 88; Resp 18; Temp 98.4(TE); Pulse Ox 96% on R/A; Weight 90.72 kg; ss Height 5 ft. 9 in. (175.26 cm); Pain 2/10; 11:43 Body Mass Index 29.53 (90.72 kg, 175.26 cm) ED Course: 11:37 Patient arrived in ED. ss 11:37 Ad Brady NP is PHCP. pm1 11:37 Russ Talbert MD is Attending Physician. pm1 11:42 Triage completed. ss 11:43 Arm band placed on right wrist. ss 11:52 Patient has correct armband on for positive identification. Bed in low position. Call ss light in reach. Side rails up X 1. Pulse ox on. NIBP on. Warm blanket given. 11:52 Inserted saline lock: 22 gauge in right antecubital area, using aseptic technique. ss Blood collected. 11:52 Patient maintains SpO2 saturation greater than 95% on room air. ss 12:01 Saige Arellano, IRA is Primary Nurse. ss 13:13 No provider procedures requiring assistance completed. IV discontinued, intact, ss bleeding controlled, No redness/swelling at site. Pressure dressing applied. Administered Medications: 12:01 Drug: Zofran 4 mg Route: IVP; Site: left antecubital; 12:52 Follow up: Response: No adverse reaction; Nausea is decreased 12:01 Drug: NS 0.9% 1000 ml Route: IV; Rate: 1000 ml; Site: left antecubital; 12:52 Follow up: IV Status: Completed infusion; IV Intake: 1000ml ss Intake: 12:52 IV: 1000ml; Total: 1000ml. Outcome: 13:05 Discharge ordered by . pm1 13:13 Discharged to home ambulatory. 13:13 Condition: good 13:13 Discharge instructions given to patient, Instructed on discharge instructions, follow up and referral plans. medication usage, Demonstrated understanding of instructions, follow-up care, medications, Prescriptions given X 2. 13:14 Patient left the ED. Signatures: Saige Arellano, RN RN Ad Brady, CONSULTING MARINE ENGINEER CONSULTING MARINE ENGINEER pm1
--- NOTE | 2018-06-04 13:05 | EDPHYS ---
Physician Documentation [facility] Name: Teodoro Monte Age: 23 yrs Sex: Male : 1995 Arrival Date: 06/04/2018 Time: 11:37 Bed 23 Private MD: ED Physician Russ Talbert HPI: 06/04 12:05 This 23 yrs old Male presents to ER via Ambulatory with complaints of Anxiety, pm1 Nausea. 12:05 The patient presents to the emergency department with anxiety. Onset: The pm1 symptoms/episode began/occurred today. Past psychiatric history: Prior diagnosis: anxiety, Psychiatric medications include: none, Primary psychiatric physician: the patient does not have a primary psychiatric physician. Associated signs and symptoms: Pertinent positives; nausea, vomiting, hyperventilation. Severity of symptoms: in the emergency department the symptoms have improved Pain is currently a 0 / 10. The patient has experienced similar episodes in the past, and the symptoms today are exactly the same, daily with anxiety. The patient has not recently seen a physician. Historical: - Allergies: 11:43 No Known Allergies; ss - Home Meds: 11:43 None [Active]; ss - PMHx: 11:43 Anxiety; Heart Murmur; ss - PSHx: 11:43 None; ss - Immunization history:: Adult Immunizations up to date. - Social history:: Smoking status: Patient/guardian denies using tobacco, Patient uses alcohol, only on a social basis. Patient/guardian denies using street drugs. - Ebola Screening: : Patient denies exposure to infectious person Patient denies travel to an Ebola-affected area in the 21 days before illness onset. ROS: 12:05 Constitutional: Negative for fever, chills, and weight loss, Eyes: Negative for injury, pm1 pain, redness, and discharge, ENT: Negative for injury, pain, and discharge, Neck: Negative for injury, pain, and swelling, Cardiovascular: Negative for chest pain, palpitations, and edema, Respiratory: Negative for shortness of breath, cough, wheezing, and pleuritic chest pain, Back: Negative for injury and pain, : Negative for injury, bleeding, discharge, and swelling, MS/Extremity: Negative for injury and deformity, Skin: Negative for injury, rash, and discoloration, Neuro: Negative for headache, weakness, numbness, tingling, and seizure. 12:05 Abdomen/GI: Positive for nausea and vomiting, Negative for abdominal pain, diarrhea, constipation. 12:05 Psych: Positive for anxiety, Negative for depression, auditory hallucinations, visual hallucinations, homicidal ideation, insomnia, suicide gesture, suicidal ideation. Exam: 12:05 Constitutional: This is a well developed, well nourished patient who is awake, alert, pm1 and in no acute distress. Head/Face: Normocephalic, atraumatic. Eyes: Pupils equal round and reactive to light, extra-ocular motions intact. Lids and lashes normal. Conjunctiva and sclera are non-icteric and not injected. Cornea within normal limits. Periorbital areas with no swelling, redness, or edema. ENT: Nares patent. No nasal discharge, no septal abnormalities noted. Tympanic membranes are normal and external auditory canals are clear. Oropharynx with no redness, swelling, or masses, exudates, or evidence of obstruction, uvula midline. Mucous membranes moist. Neck: Trachea midline, no thyromegaly or masses palpated, and no cervical lymphadenopathy. Supple, full range of motion without nuchal rigidity, or vertebral point tenderness. No Meningismus. Chest/axilla: Normal chest wall appearance and motion. Nontender with no deformity. No lesions are appreciated. Cardiovascular: Regular rate and rhythm with a normal S1 and S2. No gallops, murmurs, or rubs. Normal PMI, no JVD. No pulse deficits. Respiratory: Lungs have equal breath sounds bilaterally, clear to auscultation and percussion. No rales, rhonchi or wheezes noted. No increased work of breathing, no retractions or nasal flaring. Abdomen/GI: Soft, non-tender, with normal bowel sounds. No distension or tympany. No guarding or rebound. No evidence of tenderness throughout. Back: No spinal tenderness. No costovertebral tenderness. Full range of motion. Skin: Warm, dry with normal turgor. Normal color with no rashes, no lesions, and no evidence of cellulitis. MS/ Extremity: Pulses equal, no cyanosis. Neurovascular intact. Full, normal range of motion. 12:05 Neuro: Orientation: is normal, Motor: is normal, moves all fours, strength is normal, strength is 5/5 in all extremities, Sensation: is normal, no obvious gross deficits, Gait: is steady, at a normal pace, without difficulty. 12:05 Psych: Behavior/mood is cooperative, Affect is calm, Oriented to person, place, time. Vital Signs: 11:43 BP 133 / 82; Pulse 88; Resp 18; Temp 98.4(TE); Pulse Ox 96% on R/A; Weight 90.72 kg; ss Height 5 ft. 9 in. (175.26 cm); Pain 2/10; 11:43 Body Mass Index 29.53 (90.72 kg, 175.26 cm) ss MDM: 11:43 Patient medically screened. pm1 13:03 Data reviewed: vital signs. Data interpreted: Pulse oximetry: on room air is 96 %. pm1 Interpretation: normal. Counseling: I had a detailed discussion with the patient and/or guardian regarding: the historical points, exam findings, and any diagnostic results supporting the discharge/admit diagnosis, lab results, the need for outpatient follow up, to return to the emergency department if symptoms worsen or persist or if there are any questions or concerns that arise at home. 06/04 11:43 Order name: Basic Metabolic Panel; Complete Time: 12:45 pm1 06/04 11:43 Order name: CBC with Diff; Complete Time: 12:45 pm06/04 11:43 Order name: Creatinine for Radiology; Complete Time: 12:45 pm06/04 11:43 Order name: Hepatic Function; Complete Time: 12:45 pm1 06/04 11:43 Order name: Lipase; Complete Time: 12:45 pm06/04 12:37 Order name: Manual Differential; Complete Time: 12:45 EDMS 06/04 11:43 Order name: IV Saline Lock; Complete Time: 11:52 pm06/04 11:43 Order name: Labs collected and sent; Complete Time: 11:52 pm06/04 11:43 Order name: Urine Dipstick-Ancillary (obtain specimen); Complete Time: 12:52 pm1 Administered Medications: 12:01 Drug: Zofran 4 mg Route: IVP; Site: left antecubital; ss 12:52 Follow up: Response: No adverse reaction; Nausea is decreased ss 12:01 Drug: NS 0.9% 1000 ml Route: IV; Rate: 1000 ml; Site: left antecubital; ss 12:52 Follow up: IV Status: Completed infusion; IV Intake: 1000ml ss Disposition: 06/04/18 13:05 Discharged to Home. Impression: Anxiety disorder, unspecified, Nausea. - Condition is Stable. - Discharge Instructions: Panic Attacks, Generalized Anxiety Disorder. - Prescriptions for Hydroxyzine HCl 25 mg Oral Tablet - take 1 tablet by ORAL route every 6 hours As needed; 30 tablet. Zofran 4 mg Oral Tablet - take 1 tablet by ORAL route every 12 hours As needed; 20 tablet. - Medication Reconciliation Form, Thank You Letter, Antibiotic Education, Prescription Opioid Use form. - Work release form (06/04/18 13:22). ss - Follow up: Emergency Department; When: As needed; Reason: Worsening of condition. Follow up: Private Physician; When: 2 - 3 days; Reason: Recheck today's complaints, Continuance of care, Re-evaluation by your physician. - Problem is new. - Symptoms have improved. Addendum: 06/09/2018 10:37 Co-signature as Attending Physician, Russ Talbert MD I agree with the assessment and k dr plan of care. Signatures: Dispatcher [employer] EDMS Russ Talbert MD MD [facility] Saige Arellano RN RN ss Ad Brady NP LEATHER TANNER pm1 Corrections: (The following items were deleted from the chart) 06/04 13:08 13:05 06/04/2018 13:05 Discharged to Home. Impression: Nausea; Acute stress reaction. pm1 Condition is Stable. Forms are Medication Reconciliation Form, Thank You Letter, Antibiotic Education, Prescription Opioid Use. Follow up: Emergency Department; When: As needed; Reason: Worsening of condition. Follow up: Private Physician; When: 2 - 3 days; Reason: Recheck today's complaints, Continuance of care, Re-evaluation by your physician. Problem is new. Symptoms have improved. pm1 13:08 13:08 06/04/2018 13:05 Discharged to Home. Impression: Nausea; Anxiety disorder, pm1 unspecified. Condition is Stable. Discharge Instructions: Panic Attacks, Generalized Anxiety Disorder. Prescriptions for Hydroxyzine HCl 25 mg Oral Tablet - take 1 tablet by ORAL route every 6 hours As needed; 30 tablet, Zofran 4 mg Oral Tablet - take 1 tablet by ORAL route every 12 hours As needed; 20 tablet. and Forms are Medication Reconciliation Form, Thank You Letter, Antibiotic Education, Prescription Opioid Use. Follow up: Emergency Department; When: As needed; Reason: Worsening of condition. Follow up: Private Physician; When: 2 - 3 days; Reason: Recheck today's complaints, Continuance of care, Re-evaluation by your physician. Problem is new. Symptoms have improved. pm1 13:14 13:08 06/04/2018 13:05 Discharged to Home. Impression: Anxiety disorder, ss unspecifiedNausea. Condition is Stable. Discharge Instructions: Panic Attacks, Generalized Anxiety Disorder. Prescriptions for Hydroxyzine HCl 25 mg Oral Tablet - take 1 tablet by ORAL route every 6 hours As needed; 30 tablet, Zofran 4 mg Oral Tablet - take 1 tablet by ORAL route every 12 hours As needed; 20 tablet. and Forms are Medication Reconciliation Form, Thank You Letter, Antibiotic Education, Prescription Opioid Use. Follow up: Emergency Department; When: As needed; Reason: Worsening of condition. Follow up: Private Physician; When: 2 - 3 days; Reason: Recheck today's complaints, Continuance of care, Re-evaluation by your physician. Problem is new. Symptoms have improved. pm1
[2018-06-04 13:39] VITALS: BP 133/82; TEMP 98.4; O2SAT 96
== END 2018-06-04 13:14 | disposition home or self-care (01) ==
LOC: ER 11:31
DX: F41.9 Anxiety disorder, unspecified (principal); R11.0 Nausea
CPT/HCPCS: 36415; 80048; 80076; 83690; 85025; 96361; 96374; 99284; J2405; J7030

== ENCOUNTER 2018-08-01 20:12 | Emergency (ER) | payer SELFPAY ==
[2018-08-01] MEDS ORDERED: ONDANSETRON 4 MG/2 ML VIAL ONE (21:11)
[2018-08-01] MEDS ORDERED: KETOROLAC 30 MG/ML INJ ONE (21:11)
--- NOTE | 2018-08-01 21:25 | EDPHYS ---
Physician Documentation [facility] Name: Teodoro Monte Age: 23 yrs Sex: Male : 1995 Arrival Date: 08/01/2018 Time: 20:18 Bed 15 Private MD: ED Physician Kwesi Yo HPI: 08/01 20:50 This 23 yrs old Male presents to ER via Ambulatory with complaints of Stiff cp Neck, Head pain. 20:50 The patient or guardian complains of pain, that is acute. The symptoms are located on cp the occipital and back of neck. Onset: The symptoms/episode began/occurred this morning. Context: upon awakening. Associated signs and symptoms: Pertinent positives: headache, nausea, Pertinent negatives: fever, numbness, vomiting, weakness. Severity of symptoms: At their worst the symptoms were a " 6" out of "10", in the emergency department the symptoms have improved, a " 4" out of "10". Historical: - Allergies: 20:33 No Known Allergies; aj - PMHx: 20:33 Anxiety; Heart Murmur; aj - Immunization history:: Adult Immunizations unknown. - Social history:: Smoking status: unknown. - Ebola Screening: : Patient negative for fever greater than or equal to 101.5 degrees Fahrenheit, and additional compatible Ebola Virus Disease symptoms Patient denies exposure to infectious person Patient denies travel to an Ebola-affected area in the 21 days before illness onset No symptoms or risks identified at this time. ROS: 21:00 Constitutional: Negative for body aches, chills, fever, poor PO intake. cp 21:00 Eyes: Negative for injury, pain, redness, and discharge. cp 21:00 ENT: Negative for drainage from ear(s), ear pain, sore throat, difficulty swallowing, difficulty handling secretions. 21:00 Neck: Positive for pain with movement, tenderness, Negative for injury or acute deformity, stiffness. 21:00 Cardiovascular: Negative for chest pain, edema, palpitations. 21:00 Respiratory: Negative for cough, shortness of breath, wheezing. 21:00 Abdomen/GI: Positive for nausea, Negative for abdominal pain, vomiting, diarrhea, constipation. 21:00 Back: Negative for pain at rest, pain with movement, radiated pain. 21:00 : Negative for urinary symptoms. 21:00 Skin: Negative for rash. 21:00 Neuro: Positive for headache, Negative for altered mental status, numbness, tingling, weakness. 21:00 All other systems are negative. Exam: 21:05 Constitutional: The patient appears in no acute distress, alert, awake, comfortable, cp non-toxic, well developed, well nourished. 21:05 Head/Face: Normocephalic, atraumatic. cp 21:05 Eyes: Periorbital structures: appear normal, Conjunctiva: normal, no exudate, no injection, Sclera: no appreciated abnormality, Lids and lashes: appear normal, bilaterally. 21:05 ENT: External ear(s): are unremarkable, Ear canal(s): are normal, clear, TM's: dullness, bilaterally, Nose: is normal, Mouth: is normal, Posterior pharynx: is normal, airway is patent, no erythema, no exudate. 21:05 Neck: External neck: tenderness, that is mild, of the occiput, left mid cervical area and right mid cervical area, ROM/movement: is normal, is supple, no range of motions limitations, no meningismus, no nuchal rigidity, Lymph nodes: no appreciated lymphadenopathy. 21:05 Chest/axilla: Inspection: normal, Palpation: is normal, no crepitus, no tenderness. 21:05 Cardiovascular: Rate: normal, Rhythm: regular. 21:05 Respiratory: the patient does not display signs of respiratory distress, Respirations: normal, no use of accessory muscles, no retractions, no splinting, no tachypnea, Breath sounds: are clear throughout, no decreased breath sounds, no stridor, no wheezing. 21:05 Abdomen/GI: Exam negative for discomfort, distension, guarding, Inspection: abdomen appears normal. 21:05 Skin: no rash present. 21:05 Neuro: Orientation: is normal, Mentation: is normal, Cerebellar function: is grossly normal, Motor: moves all fours, strength is normal, Sensation: is normal. 21:05 Special observations: complaints out of proportion to exam, no evidence of discomfort, patient using laptop and appears in no discomfort upon entering room. Vital Signs: 20:33 BP 142 / 65; Pulse 73; Resp 14; Temp 98.2; Pulse Ox 96% on R/A; Weight 90.72 kg; Height aj 5 ft. 9 in. (175.26 cm); 21:32 BP 127 / 70; Pulse 72; Resp 14; Temp 98.2; Pulse Ox 99% on R/A; Pain 3/10; ls4 20:33 Body Mass Index 29.53 (90.72 kg, 175.26 cm) aj MDM: 20:39 Patient medically screened. cp 20:55 Differential diagnosis: Cervical Disc Herniation cervical strain, Spondylolisthesis cp Spondylosis migraine, tension headache, meningitis. 21:22 Data reviewed: vital signs, nurses notes. cp 21:22 Counseling: I had a detailed discussion with the patient and/or guardian regarding: the cp historical points, exam findings, and any diagnostic results supporting the discharge/admit diagnosis, to return to the emergency department if symptoms worsen or persist or if there are any questions or concerns that arise at home. Response to treatment: the patient's symptoms have mildly improved after treatment, and as a result, I will discharge patient. ED course: VSS. No meningeal signs noted on exam. Headache not described as worst of life, will discharge to home for continued monitoring. Administered Medications: 21:01 Drug: Zofran 4 mg Route: IM; Site: left deltoid; ls4 21:28 Follow up: Response: No adverse reaction; Marked relief of symptoms ls4 21:01 Drug: TORadol 60 mg Route: IM; Site: right deltoid; ls4 21:25 Follow up: Response: No adverse reaction; Marked relief of symptoms ls4 Disposition: 08/02 03:10 Co-signature as Attending Physician, Kwesi Yo MD. pklucas Disposition: 08/01/18 21:24 Discharged to Home. Impression: Headache. - Condition is Stable. - Discharge Instructions: General Headache Without Cause. - Prescriptions for Ibuprofen 800 mg Oral Tablet - take 1 tablet by ORAL route every 8 hours As needed take with food; 30 tablet. Zofran 4 mg Oral Tablet - take 1 tablet by ORAL route every 12 hours As needed; 20 tablet. - Medication Reconciliation Form, Thank You Letter, Antibiotic Education, Prescription Opioid Use form. - Follow up: Private Physician; When: 1 - 2 days; Reason: Worsening of condition. - Problem is new. - Symptoms have improved. Signatures: Мария Rhodes RN RIA Yo, MD DIANA Orosco pkl Page, Raul, PA PA cp Raciel, Karen, RN RN ls4 Corrections: (The following items were deleted from the chart) 08/01 21:34 21:24 08/01/2018 21:24 Discharged to Home. Impression: Headache. Condition is Stable. ls4 Forms are Medication Reconciliation Form, Thank You Letter, Antibiotic Education, Prescription Opioid Use. Follow up: Private Physician; When: 1 - 2 days; Reason: Worsening of condition. Problem is new. Symptoms have improved. cp
--- NOTE | 2018-08-01 21:25 | ER ---
Nurse's Notes [facility] Name: Teodoro Monte Age: 23 yrs Sex: Male : 1995 Arrival Date: 08/01/2018 Time: 20:18 Bed 15 Private MD: Diagnosis: Headache Presentation: 08/01 20:32 Presenting complaint: Patient states: Headache since 1400 today when patient awoke and aj felt a "pop" in his head and then has felt pain in head since. Ambulated with steady gait to triage. Alert and oriented with PERRLA. Transition of care: patient was not received from another setting of care. Onset of symptoms was August 01, 2018. Onset of symptoms was August 01, 2018 at 14:00. Care prior to arrival: None. 20:32 Method Of Arrival: Ambulatory aj 20:32 Acuity: JASBIR 3 aj 21:03 Risk Assessment: Do you want to hurt yourself or someone else? Patient reports no ls4 desire to harm self or others. Initial Sepsis Screen: Does the patient meet any 2 criteria? No. Patient's initial sepsis screen is negative. Does the patient have a suspected source of infection? No. Patient's initial sepsis screen is negative. Triage Assessment: 20:33 General: Appears in no apparent distress. comfortable, Behavior is calm, cooperative, aj appropriate for age. Pain: Complains of pain in face and scalp. Neuro: Reports headache. Historical: - Allergies: 20:33 No Known Allergies; aj - PMHx: 20:33 Anxiety; Heart Murmur; aj - Immunization history:: Adult Immunizations unknown. - Social history:: Smoking status: unknown. - Ebola Screening: : Patient negative for fever greater than or equal to 101.5 degrees Fahrenheit, and additional compatible Ebola Virus Disease symptoms Patient denies exposure to infectious person Patient denies travel to an Ebola-affected area in the 21 days before illness onset No symptoms or risks identified at this time. Screenin:02 Abuse screen: Denies threats or abuse. Denies injuries from another. Nutritional ls4 screening: No deficits noted. Tuberculosis screening: No symptoms or risk factors identified. Fall Risk None identified. Assessment: 21:05 General: Appears in no apparent distress. Behavior is calm, cooperative. Neuro: No ls4 deficits noted. Cardiovascular: No deficits noted. Respiratory: No deficits noted. Musculoskeletal: Reports pain in neck since 2 pm. Pain is 7 out of 10 on a pain scale. Vital Signs: 20:33 BP 142 / 65; Pulse 73; Resp 14; Temp 98.2; Pulse Ox 96% on R/A; Weight 90.72 kg; Height aj 5 ft. 9 in. (175.26 cm); 21:32 BP 127 / 70; Pulse 72; Resp 14; Temp 98.2; Pulse Ox 99% on R/A; Pain 3/10; ls4 20:33 Body Mass Index 29.53 (90.72 kg, 175.26 cm) ED Course: 20:18 Patient arrived in ED. am2 20:33 Triage completed. aj 20:33 Arm band placed on right wrist. Patient placed in an exam room. aj 20:36 Karen Schrader, RIA is Primary Nurse. ls4 20:39 Raul Wilcox PA is PHCP. 20:39 Kwesi Yo MD is Attending Physician. 21:02 Patient has correct armband on for positive identification. Bed in low position. Call ls4 light in reach. Side rails up X 1. 21:02 No provider procedures requiring assistance completed. Patient did not have IV access ls4 during this emergency room visit. Administered Medications: 21:01 Drug: Zofran 4 mg Route: IM; Site: left deltoid; ls4 21:28 Follow up: Response: No adverse reaction; Marked relief of symptoms ls4 21:01 Drug: TORadol 60 mg Route: IM; Site: right deltoid; ls4 21:25 Follow up: Response: No adverse reaction; Marked relief of symptoms ls4 Outcome: 21:24 Discharge ordered by . cp 21:33 Discharged to home ambulatory. ls4 21:33 Condition: good 21:33 Discharge instructions given to patient, Instructed on discharge instructions, follow up and referral plans. medication usage, Demonstrated understanding of instructions, follow-up care, medications, Prescriptions given X 2. 21:34 Patient left the ED. ls4 Signatures: Мария Rhodes RN RN aj Page, Corey, PA PA cp Moreno, Amanda am Karen Schrader RN RN ls4 Corrections: (The following items were deleted from the chart) 21:28 21:08 Response: No adverse reaction; Marked relief of symptoms ls4 ls4
[2018-08-01 22:37] VITALS: TEMP 98.2
[2018-08-01 22:38] VITALS: BP 127/70; O2SAT 99
== END 2018-08-01 21:34 | disposition home or self-care (01) ==
LOC: ER 20:12
DX: R51 Headache (principal); R01.1 Cardiac murmur, unspecified
CPT/HCPCS: 96372; 99283; J2405

== ENCOUNTER 2020-09-03 22:02 | Emergency (ER) | payer SELFPAY ==
[2020-09-03] MEDS ORDERED: ACETAMINOPHEN 500 MG TAB ONE (23:20)
[2020-09-04 01:30] LABS: Absolute Lymphocytes (CBC) 1.1 K/uL (0.7-4.9); Basophils % 0.4 % (0-1.3); Hematocrit 45.1 % (39.6-49.0); Lymphocytes % 18.5 % (15.3-44.8); MPV 8.5 fL (7.6-11.3); RBC Red Blood Cell Count 5.07 M/uL (4.33-5.43)
[2020-09-04] MEDS ORDERED: NA CHLORIDE 0.9% 1,000 ML ONE (01:33)
[2020-09-04 01:40] LABS: ALT/SGPT 31 U/L (12-78); AST/SGOT 24 U/L (15-37); Albumin 3.8 g/dL (3.4-5.0); Alkaline Phosphatase 70 U/L (45-117); BUN Blood Urea Nitrogen 14 mg/dL (7-18); Bicarbonate 21 mmol/L (21-32); Bilirubin Direct 0.2 mg/dL (0-0.2); Bilirubin Total 0.5 mg/dL (0.2-1.0); Glucose Level 85 mg/dL (74-106); Potassium 3.5 mmol/L (3.5-5.1); Protein, Total 8.1 g/dL (6.4-8.2); Sodium Level 134 mmol/L (136-145); Troponin (Emerg Dept Use Only) < 0.02 ng/mL (0.0-0.045)
[2020-09-04] MEDS ORDERED: ONDANSETRON 4 MG/2 ML VIAL ONE (01:41)
[2020-09-04] MEDS ORDERED: predniSONE 20 MG TAB ONE (04:19)
--- NOTE | 2020-09-04 10:50 | RAD REPORT ---
EXAM DESCRIPTION: Chest For Pe Angio 09/04/2020 3:15 AM CDT CLINICAL HISTORY: 25 years, Male, SOB COMPARISON: None. TECHNIQUE: Multiple transaxial tomograms of the chest were obtained from the lung apices through the lung bases utilizing 2 mm slice thickness at 2 mm interval reconstruction after the administration o f 100 cc of Omnipaque 350 at a rate of 4.0 cc per second for complete opacification of the pulmonary arteries. Subsequent maximum intensity projection images were generated in the coronal and sagittal plane for r eview. This exam was performed according to our departmental dose-optimization protocol, which includes auto mated exposure control, adjustment of the mA and/or kV according to patient size and/or use of iterat priscilla reconstruction technique. FINDINGS: The lungs parenchyma demonstrate the presence of small bilateral upper and lower lobe lobe peripheral groundglass opacities. No significant masses, and/or consolidations are identified. The trachea mainstem bronchus demonstrate to be normal. There is no significant pericardial or pleural e ffusions. The thoracic aorta demonstrate to be unremarkable. There is no evidence for thoracic aortic dissectio n and/or significant aneurysm. The heart is normal in size. No evidence for right ventricular strain. There are no coronary artery calcifications. There is no significant mediastinal and/or hilar lymphadenopathy. The axillary regions demonstrate to be clear. Pulmonary arteries demonstrate to be normal, no intraluminal defect are seen that would suggest pulmo nary embolus. The bone windows demonstrate no significant skeletal lesions. The visualized portions of the upper abdomen demonstrate decreased attenuation of the liver suggestin g fatty infiltration. IMPRESSION: No evidence for pulmonary embolism and/or thoracic aortic dissection. Commonly reported imaging features of COVID-19 pneumonia are present. Other processes such as influen za pneumonia and organizing pneumonia, as can be seen with drug toxicity and connective tissue diseas e, can cause a similar imaging pattern. (Reference: https://pubs.rsna.org/doi/full/10.1148/ryct.36256 94155). Fatty infiltration of the liver. Electronically signed by: Mohamud Quesada MD 09/04/2020 3:24 AM CDT Due to temporary technical issues with the PACS/Fluency reporting system, reports are being signed by the in house radiologist without review as a courtesy to ensure prompt reporting. The interpreting r adiologist is fully responsible for the content of the report.
--- NOTE | 2020-09-04 10:52 | RAD REPORT ---
EXAM DESCRIPTION: Chest Single View CLINICAL HISTORY: COUGH COMPARISON: None. FINDINGS: Single frontal radiograph view of the chest. Cardiomediastinal silhouette: Normal size and contour. Lungs: No consolidation, pneumothorax, or pleural effusion. Bones: No acute osseous abnormality. Upper abdomen: No abnormality identified. IMPRESSION: 1. No acute pulmonary process identified. Electronically signed by: Damian Diallo 09/04/2020 1:17 AM CDT Due to temporary technical issues with the PACS/Fluency reporting system, reports are being signed by the in house radiologist without review as a courtesy to ensure prompt reporting. The interpreting r adiologist is fully responsible for the content of the report.
--- NOTE | 2020-09-05 12:40 | EKG ---
Test Date: 2020-09-04 Test Time: 02:27:15 Blueprint Reader: DIXON MEASUREMENT RESULTS: Intervals: Rate: 85 AR: 150 QRSD: 102 QT: 384 QTc: 456 [place]: P: 36 AR: 150 QRS: 21 T: 22 INTERPRETIVE STATEMENTS: Normal sinus rhythm Normal ECG Compared to ECG 01/24/2018 05:14:47 Early repolarization no longer present Electronically Signed On 09-05-20 12:37:45 CDT by John Gasca
--- NOTE | 2020-09-05 17:04 | EDPHYS ---
Physician Documentation [facility] Name: Teodoro Monte Age: 25 yrs Sex: Male : 1995 Arrival Date: 09/03/2020 Time: 22:06 Bed 20 Private MD: ED Physician Homer Posada HPI: 09/04 00:02 This 25 yrs old Male presents to ER via Ambulatory with complaints of Fever, mh7 Cough, Weakness. 00:02 The patient reports fever, not measured (subjective). Onset: The symptoms/episode mh7 began/occurred 4 day(s) ago. Modifying factors: there are no obvious modifying factors. Associated signs and symptoms: Pertinent positives: chest pain, cough, that is dry, headache, myalgias, runny nose, sinus congestion, shortness of breath, Generalized fatigue/weakness, Pertinent negatives: abdominal pain, altered mental status, arthralgias, backache, chills, diarrhea, pulling at ears, earache, hemoptysis, nausea, night sweats, skin rash, sore throat, swelling, vomiting. Severity of symptoms: At their worst the symptoms were moderate 2 day(s) ago, in the emergency department the symptoms are unchanged. Historical: - Allergies: 09/03 22:50 No Known Allergies; lp1 - Home Meds: 22:50 None [Active]; lp1 - PMHx: 22:50 Anxiety; Heart Murmur; lp1 - PSHx: 22:50 None; lp1 - Immunization history:: Adult Immunizations up to date. - Social history:: Smoking status: Patient denies any tobacco usage or history of. ROS: 09/04 00:02 Eyes: Negative for injury, pain, redness, and discharge, ENT: Negative for injury, mh7 pain, and discharge, Neck: Negative for injury, pain, and swelling, Abdomen/GI: Negative for abdominal pain, nausea, vomiting, diarrhea, and constipation, Back: Negative for injury and pain, : Negative for injury, bleeding, discharge, and swelling, MS/Extremity: Negative for injury and deformity, Skin: Negative for injury, rash, and discoloration, Psych: Negative for depression, anxiety, suicide ideation, homicidal ideation, and hallucinations, Allergy/Immunology: Negative for hives, rash, and allergies, Endocrine: Negative for neck swelling, polydipsia, polyuria, polyphagia, and marked weight changes, Hematologic/Lymphatic: Negative for swollen nodes, abnormal bleeding, and unusual bruising. Exam: 00:02 Constitutional: This is a well developed, well nourished patient who is awake, alert, mh7 and in no acute distress. Head/Face: Normocephalic, atraumatic. Eyes: Pupils equal round and reactive to light, extra-ocular motions intact. Lids and lashes normal. Conjunctiva and sclera are non-icteric and not injected. Cornea within normal limits. Periorbital areas with no swelling, redness, or edema. 00:02 Neck: Trachea midline, no thyromegaly or masses palpated, and no cervical lymphadenopathy. Supple, full range of motion without nuchal rigidity, or vertebral point tenderness. No Meningismus. Chest/axilla: Normal chest wall appearance and motion. Nontender with no deformity. No lesions are appreciated. Cardiovascular: Regular rate and rhythm with a normal S1 and S2. No gallops, murmurs, or rubs. Normal PMI, no JVD. No pulse deficits. Respiratory: Lungs have equal breath sounds bilaterally, clear to auscultation and percussion. No rales, rhonchi or wheezes noted. No increased work of breathing, no retractions or nasal flaring. Abdomen/GI: Soft, non-tender, with normal bowel sounds. No distension or tympany. No guarding or rebound. No evidence of tenderness throughout. Back: No spinal tenderness. No costovertebral tenderness. Full range of motion. Skin: Warm, dry with normal turgor. Normal color with no rashes, no lesions, and no evidence of cellulitis. MS/ Extremity: Pulses equal, no cyanosis. Neurovascular intact. Full, normal range of motion. Neuro: Awake and alert, GCS 15, oriented to person, place, time, and situation. Cranial nerves II-XII grossly intact. Motor strength 5/5 in all extremities. Sensory grossly intact. Cerebellar exam normal. Normal gait. Psych: Awake, alert, with orientation to person, place and time. Behavior, mood, and affect are within normal limits. 00:02 ENT: External ear(s): are unremarkable, Ear canal(s): are normal, clear, TM's: are normal, Nose: is normal, Mouth: is normal, Posterior pharynx: Airway: normal, Tonsils: bilaterally enlarged, with erythema, Uvula: normal, swelling, is not appreciated, erythema, that is moderate, exudate, is not appreciated, peritonsillar mass, is not appreciated, pooling of secretions, is not appreciated, Dental exam: normal, Voice: is normal. Vital Signs: 09/03 22:53 BP 127 / 84; Pulse 117; Resp 18; Temp 102.8(O); Pulse Ox 99% on R/A; Weight 85.28 kg lp1 (R); Height 5 ft. 9 in. (175.26 cm); Pain 4/10; 09/04 01:27 Pulse 86; Temp 98.9; la1 02:00 BP 118 / 75; Pulse 86; Resp 18; Temp 98.8(O); Pulse Ox 96% on R/A; jb4 04:00 BP 120 / 72; Pulse 82; Resp 17; Pulse Ox 98% on R/A; jb4 09/03 22:53 Body Mass Index 27.76 (85.28 kg, 175.26 cm) lp1 MDM: 03:37 Differential diagnosis: viral Infection, bacterial infection, URI, bronchitis, mh7 pneumonia. Data reviewed: vital signs, nurses notes, lab test result(s), cardiac enzymes, CBC, electrolytes, EKG, radiologic studies, CT scan, plain films. Data interpreted: Pulse oximetry: on room air is 96 %. Interpretation: normal. Counseling: I had a detailed discussion with the patient and/or guardian regarding: the historical points, exam findings, and any diagnostic results supporting the discharge/admit diagnosis, lab results, radiology results, the need for outpatient follow up, to return to the emergency department if symptoms worsen or persist or if there are any questions or concerns that arise at home. Response to treatment: the patient's symptoms have resolved after treatment, the patient's blood pressure is in an acceptable range, mental status has returned to baseline, the patient no longer shows bradycardia, the patient is not short of breath, the patient is not tachycardic, the patient's pain is gone, the patient's temperature has normalized. 03:39 Patient medically screened. [facility] 09/03 22:53 Order name: Influenza Screen (A ; Complete Time: 00:09 EDMS 09/04 00:10 Order name: CBC with Diff; Complete Time: 01:59 [facility] 09/04 00:10 Order name: Basic Metabolic Panel; Complete Time: 01: [facility] 09/04 00:10 Order name: LFT's; Complete Time: 01:59 [facility] 09/04 00:10 Order name: Chest Single View XRAY [facility] 09/04 00:33 Order name: SARS-COV-2 RT PCR; Complete Time: 01:02 [facility] 09/04 01:03 Order name: Lactate; Complete Time: 02:28 [facility] 09/04 01:03 Order name: D-Dimer; Complete Time: 02:28 [facility] 09/04 01:11 Order name: Troponin (Emerg Dept Use Only); Complete Time: : [facility] 09/04 02:28 Order name: CT Chest For PE Angio [facility] 09/04 01:03 Order name: EKG - Nurse/Tech; Complete Time: 02:32 [facility] Administered Medications: 09/03 23:07 Drug: Tylenol 1000 mg Route: PO; lp1 09/04 02:11 Follow up: Response: No adverse reaction; Marked relief of symptoms; Temperature is jb4 decreased 01:15 Drug: NS 0.9% 1000 ml Route: IV; Rate: 1000 ml; Site: right forearm; jb4 04:09 Follow up: Response: No adverse reaction; IV Status: Completed infusion; IV Intake: jb4 1000ml 01:15 Drug: Zofran (Ondansetron) 4 mg Route: IVP; Site: right forearm; jb4 01:45 Follow up: Response: No adverse reaction; Marked relief of symptoms; Nausea is decreasedjb4 04:05 Drug: predniSONE 60 mg Route: PO; jb4 04:05 Follow up: Response: Medication administered at discharge. jb4 Disposition: 04:34 Co-signature as Attending Physician, Homer Posada MD. [facility] Disposition Summary: 09/04/20 03:39 Discharge Ordered Location: Home [facility] Problem: new [facility] Symptoms: have improved [facility] Condition: Stable [facility] Diagnosis - COVID Pneumonia [facility] Followup: [facility] - With: Private Physician - When: 1 - 2 days - Reason: Worsening of condition, Recheck today's complaints, Continuance of care, Re-evaluation by your physician Followup: [facility] - With: Antony Calhoun MD - When: 1 - 2 days - Reason: Worsening of condition, Recheck today's complaints Discharge Instructions: - Discharge Summary Sheet 7 - Viral Respiratory Infection, [id number] [facility] - COVID-19 7 - 10 Things You Can Do to Manage Your COVID-19 Symptoms at Home - [place] [id number] Forms: - Medication Reconciliation Form [facility] - Thank You Letter [facility] - Antibiotic Education [facility] - Prescription Opioid Use [facility] Prescriptions: - albuterol sulfate 90 mcg/actuation Inhalation HFA aerosol inhaler - inhale 2 puff by INHALATION route every 6 hours As needed; 1 Inhaler; Refills: [facility] 0, Product Selection Permitted - Tessalon Perles 100 mg Oral Capsule - take 1 capsule by ORAL route every 8 hours As needed; 15 capsule; Refills: 0, 7 Product Selection Permitted - Zithromax Z-César 250 mg Oral Tablet - take 1 tablet by ORAL route as directed for 5 days Day 1 - take two (2) tablets [facility] one time. Day 2, 3, 4 , 5 take one (1) tablet once daily.; 6 tablet; Refills: 0, Product Selection Permitted - Prednisone 20 mg Oral Tablet - take 2 tablets by ORAL route once daily for 5 days; 10 tablet; Refills: 0, 7 Product Selection Permitted Signatures: Dispatcher [employer] EDMS Sheila Martines, RN RN lp1 Gadiel Roman, TACKING STITCH REMOVER-C TACKING STITCH REMOVER-Cla1 Carlos Beebe RN RN jb4 Homer Posada MD MD 7 Corrections: (The following items were deleted from the chart) 09/03 23:13 22:53 Influenza Screen (A \T\ B)+BA.LAB.BRZ ordered. EDMS EDMS 09/04 01:11 01:04 TROPONIN (EMERG DEPT USE ONLY)+C.LAB.BRZ ordered. EDMS EDMS 02:20 00:11 Group A Streptococcus Rapid Sc+BA.LAB.BRZ ordered. EDMS EDMS
--- NOTE | 2020-09-05 17:04 | ER ---
Nurse's Notes [facility] Name: Teodoro Monte Age: 25 yrs Sex: Male : 1995 Arrival Date: 09/03/2020 Time: 22:06 Bed 20 Private MD: Diagnosis: COVID Pneumonia Presentation: 09/03 22:47 Chief complaint: Patient states: Headache, fever, shortness of breath, cough, some lp1 chest pain, dizziness, decreased appetite x 4 days; Denies vomiting, diarrhea. Coronavirus screen: fatigue, fever, headache, shortness of breath. Ebola Screen: No symptoms or risks identified at this time. Risk Assessment: Do you want to hurt yourself or someone else? Patient reports no desire to harm self or others. Onset of symptoms was September 03, 2020. 22:47 Method Of Arrival: Ambulatory lp1 22:47 Acuity: JASBIR 3 lp1 22:53 Initial Sepsis Screen: Does the patient meet any 2 criteria? Temp <36.0*C (96.8*F)) or lp1 > 38.3*C (100.9*F). HR > 90 bpm. Does the patient have a suspected source of infection?. Historical: - Allergies: 22:50 No Known Allergies; lp1 - Home Meds: 22:50 None [Active]; lp1 - PMHx: 22:50 Anxiety; Heart Murmur; lp1 - PSHx: 22:50 None; lp1 - Immunization history:: Adult Immunizations up to date. - Social history:: Smoking status: Patient denies any tobacco usage or history of. Screenin/26 00:00 Abuse screen: Denies threats or abuse. Nutritional screening: No deficits noted. jb4 Tuberculosis screening: No symptoms or risk factors identified. Fall Risk None identified. Assessment: 00:00 General: Appears in no apparent distress. uncomfortable, Behavior is calm, cooperative, jb4 appropriate for age. Pain: Complains of pain in Generalized body aches, soar throat Pain does not radiate. Pain currently is 4 out of 10 on a pain scale. Neuro: Level of Consciousness is awake, alert, obeys commands, Oriented to person, place, time, situation. Cardiovascular: Patient's skin is warm and dry. Respiratory: Airway is patent Respiratory effort is even, unlabored, Respiratory pattern is regular, symmetrical. GI: No signs and/or symptoms were reported involving the gastrointestinal system. : No signs and/or symptoms were reported regarding the genitourinary system. EENT: No signs and/or symptoms were reported regarding the EENT system. Derm: Skin is intact, Skin is pink, warm \T\ dry. Musculoskeletal: Circulation, motion, and sensation intact. Range of motion: intact in all extremities. 01:15 Reassessment: Patient appears in no apparent distress at this time. Patient and/or jb4 family updated on plan of care and expected duration. Pain level reassessed. Patient is alert, oriented x 3, equal unlabored respirations, skin warm/dry/pink. 02:30 Reassessment: Patient appears in no apparent distress at this time. Patient and/or jb4 family updated on plan of care and expected duration. Pain level reassessed. Patient is alert, oriented x 3, equal unlabored respirations, skin warm/dry/pink. 04:05 Reassessment: Patient appears in no apparent distress at this time. Patient and/or jb4 family updated on plan of care and expected duration. Pain level reassessed. Patient is alert, oriented x 3, equal unlabored respirations, skin warm/dry/pink. Vital Signs: 09/03 22:53 BP 127 / 84; Pulse 117; Resp 18; Temp 102.8(O); Pulse Ox 99% on R/A; Weight 85.28 kg lp1 (R); Height 5 ft. 9 in. (175.26 cm); Pain 4/10; 09/04 01:27 Pulse 86; Temp 98.9; la1 02:00 BP 118 / 75; Pulse 86; Resp 18; Temp 98.8(O); Pulse Ox 96% on R/A; jb4 04:00 BP 120 / 72; Pulse 82; Resp 17; Pulse Ox 98% on R/A; jb4 09/03 22:53 Body Mass Index 27.76 (85.28 kg, 175.26 cm) lp1 ED Course: 09/03 22:06 Patient arrived in ED. bp1 22:49 Triage completed. lp1 22:49 Arm band placed on right wrist. lp1 22:57 COVID swab sent to lab. Flu and/or RSV swab sent to lab. lp1 23:50 Homer Posada MD is Attending Physician. 7 09/04 00:00 Patient has correct armband on for positive identification. Bed in low position. Call jb4 light in reach. Side rails up X 1. Pulse ox on. NIBP on. 00:24 Carlos Beebe, RN is Primary Nurse. jb4 00:26 Chest Single View XRAY In Process Unspecified. EDMS 03:11 CT Chest For PE Angio In Process Unspecified. EDMS 03:38 Antony Calhoun MD is Referral Physician. 7 04:08 No provider procedures requiring assistance completed. IV discontinued, intact, jb4 bleeding controlled, No redness/swelling at site. Pressure dressing applied. Administered Medications: 09/03 23:07 Drug: Tylenol 1000 mg Route: PO; lp1 09/04 02:11 Follow up: Response: No adverse reaction; Marked relief of symptoms; Temperature is jb4 decreased 01:15 Drug: NS 0.9% 1000 ml Route: IV; Rate: 1000 ml; Site: right forearm; jb4 04:09 Follow up: Response: No adverse reaction; IV Status: Completed infusion; IV Intake: jb4 1000ml 01:15 Drug: Zofran (Ondansetron) 4 mg Route: IVP; Site: right forearm; jb4 01:45 Follow up: Response: No adverse reaction; Marked relief of symptoms; Nausea is decreasedjb4 04:05 Drug: predniSONE 60 mg Route: PO; jb4 04:05 Follow up: Response: Medication administered at discharge. jb4 Intake: 04:09 IV: 1000ml; Total: 1000ml. jb4 Outcome: 03:39 Discharge ordered by . 7 04:08 Discharged to home ambulatory. jb4 04:08 Condition: stable 04:08 Discharge instructions given to patient, Instructed on discharge instructions, follow up and referral plans. medication usage, Demonstrated understanding of instructions, follow-up care, medications, Prescriptions given X 4. 04:09 Patient left the ED. jb4 Signatures: Dispatcher [employer] Sheila Arreaga RN RN lp1 Carlos Beebe, RN RN jb4 Iza Guo Maurice, MD MD 7 Corrections: (The following items were deleted from the chart) 04: 02:00 Response: No adverse reaction; IV Intake: 1000ml jb4 jb4
[2020-09-06 03:35] VITALS: TEMP 98.8
[2020-09-06 03:37] VITALS: BP 120/72; O2SAT 98
== END 2020-09-04 04:09 | disposition home or self-care (01) ==
LOC: ER 22:02
DX: U07.1 COVID-19 (principal); J12.82 Pneumonia due to coronavirus disease 2019
CPT/HCPCS: 71045; 71275; 87804; 93005; Q9967; U0003

== ENCOUNTER 2020-09-06 16:02 | Emergency (ER) | payer SELFPAY ==
--- NOTE | 2020-09-06 18:45 | RAD REPORT ---
EXAM DESCRIPTION: RAD - Chest Pa And Lat (2 Views) - 09/06/2020 6:38 pm CLINICAL HISTORY: COUGH COMPARISON: Chest Single View dated 09/04/2020; Chest Single View dated 08/19/2017; Chest Single View dated 07/03/2017; Chest Single View dated 04/28/2017 FINDINGS: Interval development of patchy multifocal airspace opacities bilaterally. The heart size i s within normal limits.No acute osseous abnormality. No significant pleural effusions or pneumothorax . IMPRESSION: New mild to moderate patchy bilateral airspace disease concerning for multifocal pneumon ia, including Covid-19.
--- NOTE | 2020-09-06 18:48 | EDPHYS ---
Physician Documentation [facility] Name: Teodoro Monte Age: 25 yrs Sex: Male : 1995 Arrival Date: 09/06/2020 Time: 16:02 Bed Treatment Private MD: ED Physician Earnest Flores HPI: 09/06 16:44 This 25 yrs old Male presents to ER via Ambulatory with complaints of covid+. kb 16:44 The patient or guardian reports cough, difficulty breathing, flu symptoms. Onset: The kb symptoms/episode began/occurred 2 day(s) ago. Severity of symptoms: At their worst the symptoms were moderate, in the emergency department the symptoms are unchanged. Modifying factors: The symptoms are alleviated by nothing, the symptoms are aggravated by nothing. Associated signs and symptoms: Pertinent positives: fever, Pertinent negatives: chest pain, diarrhea, ear ache, nausea, rhinorrhea, sore throat, vomiting. The patient has not experienced similar symptoms in the past. The patient has been recently seen at the [facility] Emergency Department. Patient reports he was diagnosed with Covid 2 days ago. States he was told not to lay down because that could cause blood clots. States he fell asleep and was laying down whenever he woke up so he came in because he was concerned. Also reports symptoms have not gotten any better. Historical: - Allergies: 16:24 No Known Allergies; kg - Home Meds: 16:24 None [Active]; kg - PMHx: 16:24 Anxiety; Heart Murmur; kg - PSHx: 16:24 None; kg - Immunization history:: Adult Immunizations not up to date, Client reports having NOT received the Covid vaccine. - Social history:: Smoking status: Patient reports the use of cigarette tobacco products, denies chronic smoking, but will smoke occasionally, Patient uses alcohol, weekly. ROS: 16:43 Abdomen/GI: Negative for abdominal pain, nausea, vomiting, diarrhea, and constipation. kb 16:43 Constitutional: Positive for body aches, chills, fatigue, fever, malaise, poor PO intake. 16:43 Respiratory: Positive for cough, Negative for dyspnea on exertion, hemoptysis, orthopnea, pleurisy, shortness of breath, sputum production, wheezing. 16:43 All other systems are negative. Exam: 16:43 Constitutional: This is a well developed, well nourished patient who is awake, alert, kb and in no acute distress. Head/Face: Normocephalic, atraumatic. ENT: Moist Mucous membranes Respiratory: Respirations even and unlabored. No increased work of breathing, no retractions or nasal flaring. Skin: Warm, dry with normal turgor. Normal color. MS/ Extremity: Pulses equal, no cyanosis. Neurovascular intact. Full, normal range of motion. Neuro: Awake and alert, GCS 15, oriented to person, place, time, and situation. Moves all extremities. Normal gait. Psych: Awake, alert, with orientation to person, place and time. Behavior, mood, and affect are within normal limits. Vital Signs: 16:22 BP 132 / 80; Pulse 120; Resp 20; Temp 99.9; Pulse Ox 97% ; Weight 82.1 kg; Height 5 ft. kg 9 in. (175.26 cm); Pain 6/10; 16:22 Body Mass Index 26.73 (82.10 kg, 175.26 cm) kg MDM: 16:26 Patient medically screened. kb 16:43 Data reviewed: vital signs, nurses notes. Data interpreted: Pulse oximetry: on room air kb is 97 %. Interpretation: normal. 18:47 Counseling: I had a detailed discussion with the patient and/or guardian regarding: the kb historical points, exam findings, and any diagnostic results supporting the discharge/admit diagnosis, radiology results, the need for outpatient follow up, a family practitioner, to return to the emergency department if symptoms worsen or persist or if there are any questions or concerns that arise at home. 09/06 19:27 Order name: Strep; Complete Time: 20:01 kb 09/06 20:00 Order name: Throat Culture EDMS 09/06 16:26 Order name: XRAY Chest Pa And Lat (2 Views); Complete Time: 18:47 kg Administered Medications: No medications were administered Disposition Summary: 09/06/20 18:47 Discharge Ordered Location: Home kb Condition: Stable kb Diagnosis - Viral pneumonia, unspecified kb - Coronavirus infection, unspecified kb Followup: kb - With: Emergency Department - When: As needed - Reason: Worsening of condition Followup: kb - With: Private Physician - When: 2 - 3 days - Reason: Recheck today's complaints, Continuance of care, Re-evaluation by your physician Discharge Instructions: - Discharge Summary Sheet kb - Viral Respiratory Infection, [id number] kb - COVID-19 kb Forms: - Medication Reconciliation Form kb - Thank You Letter kb - Antibiotic Education kb - Prescription Opioid Use kb Addendum: 09/09/2020 07:03 Co-signature as Attending Physician, Earnest Flores MD. r n Signatures: Dispatcher [employer] EDLorraine Koehler, CHESS INSTRUCTOR-C CHESS INSTRUCTOR-Earnest Kirk MD MD rn Graham, Kristen, RN RN kg
--- NOTE | 2020-09-06 18:48 | ER ---
Nurse's Notes [facility] Name: Teodoro Monte Age: 25 yrs Sex: Male : 1995 Arrival Date: 09/06/2020 Time: 16:02 Bed Treatment Private MD: Diagnosis: Viral pneumonia, unspecified;Coronavirus infection, unspecified Presentation: 09/06 16:22 Chief complaint: Patient states: SOB x 2 days diagnosed COVID 2 days ago. Coronavirus kg screen: Client denies travel out of the [place] in the last 14 days. At this time, unable to obtain information related to travel outside the [place] At this time, the client does not indicate any symptoms associated with coronavirus-19. Ebola Screen: Patient negative for fever greater than or equal to 101.5 degrees Fahrenheit, and additional compatible Ebola Virus Disease symptoms Patient denies exposure to infectious person. Patient denies travel to an Ebola-affected area in the 21 days before illness onset. Initial Sepsis Screen: Does the patient meet any 2 criteria? No. Patient's initial sepsis screen is negative. Does the patient have a suspected source of infection? No. Patient's initial sepsis screen is negative. Risk Assessment: Do you want to hurt yourself or someone else? Patient reports no desire to harm self or others. Onset of symptoms was September 04, 2020. 16:22 Method Of Arrival: Ambulatory kg 16:22 Acuity: JASBIR 4 kg Triage Assessment: 16:24 General: Appears in no apparent distress. Behavior is calm, cooperative, appropriate kg for age, quiet. Pain: Complains of pain in Generalized Pain currently is 7 out of 10 on a pain scale. at worst was 8 out of 10 on a pain scale. level that patient reports is acceptable is 2 out of 10 on a pain scale. Quality of pain is described as aching. Historical: - Allergies: 16:24 No Known Allergies; kg - Home Meds: 16:24 None [Active]; kg - PMHx: 16:24 Anxiety; Heart Murmur; kg - PSHx: 16:24 None; kg - Immunization history:: Adult Immunizations not up to date, Client reports having NOT received the Covid vaccine. - Social history:: Smoking status: Patient reports the use of cigarette tobacco products, denies chronic smoking, but will smoke occasionally, Patient uses alcohol, weekly. Screenin:25 Abuse screen: Denies threats or abuse. Denies injuries from another. Nutritional kg screening: No deficits noted. Tuberculosis screening: No symptoms or risk factors identified. Fall Risk None identified. Assessment: 19:33 General: Appears in no apparent distress. comfortable, Behavior is calm, cooperative, em Reports fever for 1-2 days. Pain: Complains of pain in throat. Neuro: Level of Consciousness is awake, alert, obeys commands, Oriented to person, place, time, situation. Cardiovascular: Capillary refill < 3 seconds Patient's skin is warm and dry. Respiratory: Reports cough that is Airway is patent Respiratory effort is even, unlabored, Respiratory pattern is regular, symmetrical. Derm: Skin is intact, is healthy with good turgor, Skin is pink, warm \T\ dry. Musculoskeletal: Capillary refill < 3 seconds, Range of motion: intact in all extremities. Vital Signs: 16:22 BP 132 / 80; Pulse 120; Resp 20; Temp 99.9; Pulse Ox 97% ; Weight 82.1 kg; Height 5 ft. kg 9 in. (175.26 cm); Pain 6/10; 16:22 Body Mass Index 26.73 (82.10 kg, 175.26 cm) kg ED Course: 16:02 Patient arrived in ED. as 16:24 Triage completed. kg 16:24 Arm band placed on right wrist. kg 16:25 Patient has correct armband on for positive identification. kg 16:26 [facility]C [facility] kb 16:26 Earnest Flores MD is Attending Physician. kb 18:38 XRAY Chest Pa And Lat (2 Views) In Process Unspecified. EDMS 19:32 Emiliano Canales, RN is Primary Nurse. em 19:32 No provider procedures requiring assistance completed. Patient did not have IV access em during this emergency room visit. Administered Medications: No medications were administered Outcome: 18:47 Discharge ordered by . kb 20:14 Discharged to home ambulatory. em 20:14 Condition: stable 20:14 Discharge instructions given to patient, Instructed on discharge instructions, follow up and referral plans. Demonstrated understanding of instructions, follow-up care. 20:15 Patient left the ED. em Signatures: Dispatcher [employer] EDAR Lorraien Gonzalez FNP-C FNP-Ckb Munoz, Emiliano, RN RN Juliette Grubbs Kristen, RN RN kg
[2020-09-07 15:06] VITALS: BP 132/80; TEMP 99.9; O2SAT 97
== END 2020-09-06 20:15 | disposition home or self-care (01) ==
LOC: ER 16:02
DX: U07.1 COVID-19 (principal); J12.9 Viral pneumonia, unspecified; F17.210 Nicotine dependence, cigarettes, uncomplicated
CPT/HCPCS: 71046; 87070; 87081; 99283

== ENCOUNTER 2021-09-11 17:07 | Emergency (ER) | payer SELFPAY ==
[2021-09-11] MEDS ORDERED: dexAMETHasone 10 MG/ML VIAL ONE (18:12)
[2021-09-11] MEDS ORDERED: CEFTRIAXONE 1000 MG/VIAL ONE (20:05)
[2021-09-11] MEDS ORDERED: LIDOCAINE 1% MPF 2 ML AMPULE ONE ×2 (20:05→20:10)
[2021-09-12 02:46] VITALS: TEMP 98.4
[2021-09-12 02:49] VITALS: BP 139/99; O2SAT 95
--- NOTE | 2021-09-12 10:27 | ER ---
Nurse's Notes [facility] Name: Teodoro Monte Age: 26 yrs Sex: Male : 1995 Arrival Date: 09/11/2021 Time: 17:12 Bed 14 Private MD: Diagnosis: Acute pharyngitis, unspecified Presentation: 09/11 17:16 Chief complaint: Patient states: sore throat, difficulty swallowing, and fever started eh3 last night. Coronavirus screen: Vaccine status: Patient reports being unvaccinated. Ebola Screen: No symptoms or risks identified at this time. Initial Sepsis Screen: Does the patient meet any 2 criteria? No. Patient's initial sepsis screen is negative. Does the patient have a suspected source of infection? No. Patient's initial sepsis screen is negative. Risk Assessment: Do you want to hurt yourself or someone else? Patient reports no desire to harm self or others. Onset of symptoms was September 10, 2021. 17:16 Method Of Arrival: Ambulatory [facility] 17:16 Acuity: JASBIR 4 eh3 Triage Assessment: 17:19 General: Appears in no apparent distress. comfortable, Behavior is calm, cooperative, eh3 appropriate for age. Pain: Complains of pain in throat Pain does not radiate. Pain currently is 5 out of 10 on a pain scale. at worst was 10 out of 10 on a pain scale. Quality of pain is described as burning, aching, sharp, Pain began 1 day ago. Is continuous. EENT: Throat is reddened. 17:19 Neuro: Level of Consciousness is awake, alert, obeys commands, Oriented to person, eh3 place, time, situation. Cardiovascular: Capillary refill < 3 seconds Patient's skin is warm and dry. Respiratory: Airway is patent Respiratory effort is even, unlabored. Historical: - Allergies: 17:19 No Known Allergies; eh3 - Home Meds: 17:19 None [Active]; eh3 - PMHx: 17:19 Anxiety; Heart Murmur; eh3 - PSHx: 17:19 None; eh3 - Immunization history:: Adult Immunizations unknown. - Social history:: Smoking status: Reported history of juuling and/or vaping. Patient uses alcohol, only on a social basis. Screenin:30 Abuse screen: Denies threats or abuse. Denies injuries from another. Nutritional eh3 screening: No deficits noted. Tuberculosis screening: No symptoms or risk factors identified. Fall Risk None identified. Assessment: 17:40 Respiratory: Airway is patent Respiratory effort is even, unlabored, eh3 18:05 General: Appears in no apparent distress. comfortable, Behavior is calm, cooperative, em6 appropriate for age, Denies fever, chills. 18:05 Pain: Complains of pain in throat Pain radiates to left ear Pain currently is 7 out of em6 10 on a pain scale. Quality of pain is described as aching, Pain began 2-3 days ago. Is continuous. Neuro: Terrell Agitation-Sedation Scale (RASS): 0 - Alert and Calm Level of Consciousness is awake, alert, obeys commands, Oriented to person, place, time, situation. Neuro:. Cardiovascular: Heart tones present Capillary refill < 3 seconds Patient's skin is warm and dry. Respiratory: Airway is patent Respiratory effort is even, unlabored, Respiratory pattern is regular, symmetrical, Breath sounds are clear bilaterally. GI: No signs and/or symptoms were reported involving the gastrointestinal system. : No signs and/or symptoms were reported regarding the genitourinary system. EENT: Throat is reddened has enlarged tonsils Cervical nodes enlarged bilaterally Reports difficulty swallowing. Derm: No signs and/or symptoms reported regarding the dermatologic system. Musculoskeletal: No signs and/or symptoms reported regarding the musculoskeletal system. 19:17 Reassessment: No changes from previously documented assessment. Patient and/or family sm5 updated on plan of care and expected duration. Pain level reassessed. Vital Signs: 17:16 BP 131 / 80; Pulse 105; Resp 18; Temp 98.7; Pulse Ox 98% on R/A; Weight 86.18 kg; eh3 Height 5 ft. 9 in. (175.26 cm); Pain 7/10; 18:33 BP 110 / 73; Pulse 93; Resp 18; Temp 98.4; Pulse Ox 97% ; Pain 7/10; em6 19:15 BP 139 / 99; Pulse 88; Resp 17; Pulse Ox 95% on R/A; sm5 17:16 Body Mass Index 28.06 (86.18 kg, 175.26 cm) 3 ED Course: 17:12 Patient arrived in ED. mr 17:19 Triage completed. eh3 17:19 Mickail, Lonnie, PA is PHCP. william 17:19 Raul Guerrero MD is Attending Physician. [facility] 17:19 Arm band placed on right wrist. eh3 17:30 Patient has correct armband on for positive identification. eh3 17:40 No provider procedures requiring assistance completed. Patient did not have IV access eh3 during this emergency room visit. 18:01 Mikey Lyons RN is Primary Nurse. jd3 18:34 Warm blanket given. em6 18:34 Bed in low position. Call light in reach. Side rails up X 1. em6 Administered Medications: 18:00 CANCELLED (Duplicate Order): Decadron (dexamethasone) 10 mg IM once eh3 18:05 Drug: Decadron (dexamethasone) 10 mg Route: IM; Site: left deltoid; em6 18:53 Follow up: Response: No adverse reaction em6 20:08 Drug: Rocephin (cefTRIAXone) 1 grams Route: IM; Site: left vastus lateralis; 5 20:15 Follow up: Response: No adverse reaction 5 Medication: 17:40 VIS not applicable for this client. eh3 Outcome: 19:52 Discharge ordered by MD. [facility] 20:15 Discharged to home ambulatory. [facility] 20:15 Condition: stable 20:15 Discharge instructions given to patient, Instructed on discharge instructions, follow up and referral plans. medication usage, Demonstrated understanding of instructions, follow-up care, medications, Prescriptions given X 1. 20:16 Patient left the ED. 5 Signatures: Lonnie Gallagher PA PA [facility] Federica Bunn mr Mikey Lyons RN RN jd3 Mazur, Sarah, RN RN 5 Silvia Henderson 3 Elsa Sal RN RN em6 Corrections: (The following items were deleted from the chart) 18:58 18:34 Warm blanket given. em6 em6
--- NOTE | 2021-09-12 10:27 | EDPHYS ---
Physician Documentation [facility] Name: Teodoro Monte Age: 26 yrs Sex: Male : 1995 Arrival Date: 09/11/2021 Time: 17:12 Bed 14 Private MD: ELIZABETH Physician Raul Guerrero HPI: 09/11 17:42 This 26 yrs old Male presents to ER via Ambulatory with complaints of Sore jmm Throat, Fever, Ear Pain. 17:42 The patient presents with sore throat. Onset: The symptoms/episode began/occurred jmm gradually, 1 day(s) ago. Modifying factors: The symptoms are alleviated by nothing, the symptoms are aggravated by nothing. Associated signs and symptoms: Pertinent positives: chills, fever. The patient has experienced similar episodes in the past. Historical: - Allergies: 17:19 No Known Allergies; eh3 - Home Meds: 17:19 None [Active]; eh3 - PMHx: 17:19 Anxiety; Heart Murmur; eh3 - PSHx: 17:19 None; eh3 - Immunization history:: Adult Immunizations unknown. - Social history:: Smoking status: Reported history of juuling and/or vaping. Patient uses alcohol, only on a social basis. ROS: 17:42 Constitutional: Positive for body aches, chills. jmm 17:42 ENT: Positive for sore throat. 17:42 Respiratory: Positive for cough. 17:42 All other systems are negative. Exam: 17:42 Constitutional: This is a well developed, well nourished patient who is awake, alert, jmm and in no acute distress. Head/Face: atraumatic. Eyes: EOMI, no conjunctival erythema appreciated ENT: Moist Mucus Membranes Neck: Trachea midline, Supple Chest/axilla: Normal chest wall appearance and motion. Cardiovascular: Regular rate and rhythm. No edema appreciated Respiratory: Normal respirations, no respiratory distress appreciated Abdomen/GI: Non distended 17:42 Skin: General appearance color normal MS/ Extremity: Moves all extremities, no obvious deformities appreciated, no edema noted to the lower extremities Neuro: Awake and alert Psych: Behavior is normal, Mood is normal, Patient is cooperative and pleasant 17:42 ENT: Posterior pharynx: erythema, that is moderate, exudate, that is moderate. Vital Signs: 17:16 BP 131 / 80; Pulse 105; Resp 18; Temp 98.7; Pulse Ox 98% on R/A; Weight 86.18 kg; eh3 Height 5 ft. 9 in. (175.26 cm); Pain 7/10; 18:33 BP 110 / 73; Pulse 93; Resp 18; Temp 98.4; Pulse Ox 97% ; Pain 7/10; em6 19:15 BP 139 / 99; Pulse 88; Resp 17; Pulse Ox 95% on R/A; sm5 17:16 Body Mass Index 28.06 (86.18 kg, 175.26 cm) 3 MDM: 17:57 Patient medically screened. zita 19:51 Data reviewed: vital signs, nurses notes. Counseling: I had a detailed discussion with [facility] the patient and/or guardian regarding: the historical points, exam findings, and any diagnostic results supporting the discharge/admit diagnosis, lab results, the need for outpatient follow up, to return to the emergency department if symptoms worsen or persist or if there are any questions or concerns that arise at home. ED course: Patient is alert and non toxic in appearance in the ED. NO signs of resp distress. Patient advised to follow up with pcp and otherwise given strict return precautions. Patient understood and agrees with the plan of care. . 09/11 17:20 Order name: SARS-COV-2 RT PCR (Document "Date of Onset" if Symptomatic) [facility] 09/11 17:42 Order name: Influenza Screen (A ; Complete Time: 18:18 [facility]ME 09/11 17:42 Order name: Group A Streptococcus Rapid Sc; Complete Time: 18:18 [facility] 09/11 18:09 Order name: Throat Culture [facility] 09/11 18:28 Order name: SARS-COV-2 RT PCR; Complete Time: 19:49 EDMS Administered Medications: 18:00 CANCELLED (Duplicate Order): Decadron (dexamethasone) 10 mg IM once 3 18:05 Drug: Decadron (dexamethasone) 10 mg Route: IM; Site: left deltoid; em6 18:53 Follow up: Response: No adverse reaction em6 20:08 Drug: Rocephin (cefTRIAXone) 1 grams Route: IM; Site: left vastus lateralis; sm5 20:15 Follow up: Response: No adverse reaction 5 Disposition Summary: 09/11/21 19:52 Discharge Ordered Location: Home [facility] Condition: Stable jm Diagnosis - Acute pharyngitis, unspecified jm Followup: jmm - With: Private Physician - When: 2 - 3 days - Reason: Recheck today's complaints, Continuance of care, Re-evaluation by your physician Discharge Instructions: - Discharge Summary Sheet [facility] - Pharyngitis [facility] Forms: - Medication Reconciliation Form [facility] - Thank You Letter [facility] - Antibiotic Education [facility] - Prescription Opioid Use [facility] - Work release form 5 Prescriptions: - cefdinir 300 mg Oral capsule - take 1 capsule by ORAL route every 12 hours for 10 days; 20 capsule; Refills: [facility] 0, Product Selection Permitted Signatures: Dispatcher [employer] EDRaul Galaviz MD MD cha Mickail, Joel, PA PA jmm Mazur, Sarah, RN RN 5 Silvia Henderson [facility] Elsa Sal RN RN em6 Corrections: (The following items were deleted from the chart) 18:00 18:00 Decadron (dexamethasone) 10 mg IM once ordered. [place] [id number]
== END 2021-09-11 20:16 | disposition home or self-care (01) ==
LOC: ER 17:07
DX: J02.9 Acute pharyngitis, unspecified (principal); R05.9 Cough, unspecified; Z20.822 Contact with and (suspected) exposure to COVID-19
CPT/HCPCS: 87070; 87081; 87804; 96372; 99283; J1100; U0003